=== PATIENT | male | born 1950 | race Caucasian/White ===

== ENCOUNTER 2017-11-26 13:14 | Inpatient (IN) | payer MEDICARE ==
[~2017-11-26] VITALS: Ht 188 cm; Wt 93.8 kg
[~2017-11-26 13:14] MED LIST: ALBU0.084 NEB; ALBU18 IN; AMLO2.5T6; ASPI81TA27 PO; BUDE160A3 INH; BUPR150T4; CARV6.2551 PO; DOCU250C3 PO; FURO40TA4 PO; GLYB1.25; LIS10T PO; METO2.5T11 PO; MULTTAB61 PO; POTA99TA13; QUET25TA46 PO; SERDISK IN; TIOTCAP INH
[2017-11-26] MEDS ORDERED: SODIUM CHLORIDE 0.9% 1,000 ML IV ONE ×2 (14:15→14:27)
[2017-11-26 14:30] VITALS: BP 103/77
[2017-11-26 15:40] LABS: Basophils # (auto) 0.1 uL; Basophils % (auto) 0.3 % (0.0-2.0); Eosinophils # (auto) 0 uL; Hematocrit 51.6 % (41.0-53.0); Hemoglobin 16.4 g/dL (13.5-17.5); Lymphocytes # (auto) 0.3 uL; Lymphocytes % (auto) 1.6 % (10.0-50.0); Mean Corpuscular Hemoglobin 27.9 pg (28.0-32.0); Mean Corpuscular Hgb Conc. 31.8 g/dL (32.0-36.0); Mean Corpuscular Volume 87.5 fL (80.0-100.0); Monocytes # (auto) 0.8 uL; Monocytes % (auto) 4.6 % (0.0-12.0); Neutrophils # (auto) 15.9 uL; Neutrophils % (auto) 93.5 % (37.0-80.0); Nucleated Red Blood Cells % 0.1 %; Platelet Count (auto) 113 10^3/uL (140-450)
[2017-11-26] MEDS ORDERED: VANCOMYCIN 1GM/250ML 250 ML IV ONE ×2 (15:45→20:45)
[2017-11-26 15:48] LABS: Urine Bacteria NONE SEEN /hpf (None Seen); Urine Blood TRACE /uL (Negative); Urine Hyaline Cast FEW /lpf (0 - 2); Urine Specific Gravity 1.021 (1.001-1.035); Urine WBC 56 /hpf (0 - 3); Urine WBC Clumps PRESENT /hpf (None Seen)
[2017-11-26] MEDS ORDERED: cefTRIAXone 1GM/10ml IVPUSH 10 ML IV ONE (16:06)
[2017-11-26 16:09] LABS: Red Cell Distribution Width 21.2 % (11.8-14.3)
[2017-11-26 16:13] LABS: Partial Thromboplastin Time 36.5 sec (23.78-33.04); Prothrombin Time 60.2 sec (9.27-12.13)
[2017-11-26 16:22] LABS: INR 6.24 (0.9-1.15)
[2017-11-26 16:29] LABS: Lactic Acid w/Reflex 3.7 mmol/L (0.4-2.0)
[2017-11-26] MEDS ORDERED: phytonadione 10 MG in SODIUM CHL 0.9% 50 ML IV ONE (16:30)
[2017-11-26] MEDS ORDERED: MIDAZOLAM HCL 5 MG/ML-1ML VIAL ONE (17:03)
[2017-11-26] MEDS ORDERED: MIDAZOLAM DRIP 50 mg/50mL 50 ML IV ONE (17:04)
[2017-11-26] MEDS: MIDAZOLAM DRIP 50 mg/50mL 50 ML IV SCH (17:13)
[2017-11-26 17:18] VITALS: BP 91/63
[2017-11-26] MEDS ORDERED: DILTIAZEM HCL 25 MG/5 ML VIAL IV ONE (17:30)
[2017-11-26] MEDS ORDERED: MIDAZOLAM HCL 5 MG/ML-1ML VIAL IV ONE (17:30)
[2017-11-26] MEDS ORDERED: DILTIAZEM HCL 50 MG/10 ML VIAL IV ONE (17:53)
[2017-11-26 18:32] LABS: Potassium 6.9 mmol/L (3.5-5.1)
[2017-11-26 18:33] LABS: BUN/Creatinine Ratio 22.2; Bilirubin, Total 5.4 mg/dL (0.2-1.0); Calcium 8.2 mg/dL (8.5-10.1)
[2017-11-26 18:34] LABS: Albumin 2.8 g/dL (3.4-5.0)
[2017-11-26] MEDS ORDERED: CALCIUM GLUC 4.65meq/50ml D5AE 50 ML IV ONE ×2 (18:45→22:15)
[2017-11-26] MEDS ORDERED: FUROSEMIDE 40 MG/4 ML VIAL IV ONE (18:45)
[2017-11-26] MEDS ORDERED: SODIUM BICARBONATE 8.4 % INJ 50ML VIAL IV ONE ×2 (18:45→22:15)
[2017-11-26] MEDS ORDERED: NOREPINEPHRINE 8 MG/250ML KIT 250 ML IV ONE (18:54)
[2017-11-26 18:55] VITALS: BP 91/68
[2017-11-26] MEDS: NOREPINEPHRINE 8 MG/250ML KIT 250 ML IV SCH (19:09)
[2017-11-26] MEDS ORDERED: SODIUM CHLORIDE 0.9% 1,000 ML IV SCH (19:11)
[2017-11-26] MEDS ORDERED: ACETAMINOPHEN 325 MG TAB PO PRN (19:15)
[2017-11-26] MEDS ORDERED: ONDANSETRON HCL 4 MG/2 ML VIAL IV PRN (19:15)
[2017-11-26] MEDS ORDERED: NITROGLYCERIN 0.4 MG SL TAB SL PRN (19:15)
[2017-11-26] MEDS ORDERED: DEXTROSE (50%) 50ML SYRG IV PRN (19:15)
[2017-11-26] MEDS ORDERED: VANCOMYCIN PER PHARMACY 0 MG IV SCH (19:15)
[2017-11-26] MEDS ORDERED: MORPHINE SULF INJ 2 MG/ML SYRINGE 1ML IV PRN (19:15)
[2017-11-26 19:56] VITALS: BP 91/68
[2017-11-26] MEDS: fentaNYL Drip 2500mCg/250mlNS 250 ML IV SCH (20:14)
[2017-11-26 20:30] VITALS: BP 94/61
[2017-11-26] MEDS ORDERED: BUMETANIDE (0.25 MG/ML) INJ 10ML IV ONE (20:45)
[2017-11-26] MEDS ORDERED: BUMETANIDE (0.25MG/ML) 4 ML VIAL IV ONE (21:00)
[2017-11-26 21:49] LABS: Potassium 6.4 mmol/L (3.5-5.1)
[2017-11-26 22:13] VITALS: BP 80/55
[2017-11-26] MEDS ORDERED: SODIUM POLYSTYRENE SULF 15GM/60ML SUSP PO ONE (22:15)
[2017-11-26] MEDS ORDERED: ACETAMINOPHEN 650 MG RECT SUPP PR ONE (22:15)
[2017-11-26] MEDS ORDERED: DEXTROSE (50%) 50ML SYRG IV ONE (22:15)
[2017-11-26] MEDS ORDERED: InsuLIN REG 1unit/0.01ml Soln (100units/ml) IV ONE (22:15)
[2017-11-26] MEDS: VASOPRESSIN 50 UNITS in D5W 5% 247.5 ML IV SCH (22:26)
[2017-11-26] MEDS ORDERED: LEVOFLOXACIN 250MG 50 ML IV SCH (23:00)
[2017-11-26] MEDS: SODIUM CHLORIDE 0.9% 1,000 ML IV SCH (23:07)
[2017-11-26] MEDS ORDERED: SODIUM POLYSTYRENE SULF 15GM/60ML SUSP NG ONE (23:15)
[2017-11-26] MEDS: ACCU-CHEK COMFORT CURVE STRIP VI SCH (23:41)
[2017-11-26] MEDS: InsuLIN REG 1unit/0.01ml Soln (100units/ml) SC SCH (23:41)
[2017-11-27] VITALS (72 sets, daily range): BP systolic 90–146; BP diastolic 39–93
[2017-11-27 00:30] LABS: Creatinine, Urine 227 mg/dL (30.0-125.0); Sodium Urine 6 mmol/L (40-220)
[2017-11-27 01:24] LABS: Hematocrit 47.8 % (41.0-53.0); Hemoglobin 15.2 g/dL (13.5-17.5); Mean Corpuscular Hemoglobin 27.1 pg (28.0-32.0); Mean Corpuscular Hgb Conc. 31.7 g/dL (32.0-36.0); Mean Corpuscular Volume 85.6 fL (80.0-100.0); Platelet Count (auto) 99 10^3/uL (140-450); Red Blood Cells 5.59 10^6/uL (4.5-5.90); Red Cell Distribution Width 19.9 % (11.8-14.3); White Blood Cell 17.2 10^3/uL (4.4-10.8)
[2017-11-27 01:36] LABS: Basophils % (manual) 0 (0.0-2.0); Blast Cells 0; Eosinophils % (manual) 0 (0-7); Metamyelocytes % 0; Myelocytes % 0; Promyelocytes % 0; Reactive Lymphocytes 0
[2017-11-27 01:45] LABS: Albumin 2.1 g/dL (3.4-5.0); Calcium 7.2 mg/dL (8.5-10.1); Potassium 5.5 mmol/L (3.5-5.1)
[2017-11-27 01:50] LABS: BUN/Creatinine Ratio 24.3; Bilirubin, Total 4.2 mg/dL (0.2-1.0); Total Protein 5.4 g/dL (6.4-8.2)
[2017-11-27] MEDS ORDERED: D5W/SOD CHLO 0.9% 1,000 ML IV ONE (02:30)
[2017-11-27 04:20] LABS: Band Neutrophils % (manual) 2; Lymphocytes % (manual) 3 (10.0-50.0); Monocytes % (manual) 5 (0-12)
[2017-11-27] MEDS: ACCU-CHEK COMFORT CURVE STRIP VI SCH ×4 (05:48→23:41)
[2017-11-27] MEDS: InsuLIN REG 1unit/0.01ml Soln (100units/ml) SC SCH ×4 (05:48→23:42)
[2017-11-27] MEDS ORDERED: FUROSEMIDE 20 MG/2 ML VIAL IV SCH (06:00)
[2017-11-27 07:15] LABS: Hemoglobin 15.3 g/dL (13.5-17.5); Mean Corpuscular Hemoglobin 27.2 pg (28.0-32.0); Mean Corpuscular Hgb Conc. 31.3 g/dL (32.0-36.0); Mean Corpuscular Volume 86.8 fL (80.0-100.0); Platelet Count (auto) 104 10^3/uL (140-450); Red Blood Cells 5.64 10^6/uL (4.5-5.90); White Blood Cell 22.7 10^3/uL (4.4-10.8)
[2017-11-27 07:35] LABS: Albumin 2.3 g/dL (3.4-5.0); BUN/Creatinine Ratio 23.1; Bilirubin, Total 5.2 mg/dL (0.2-1.0); Calcium 7.5 mg/dL (8.5-10.1); Total Protein 5.8 g/dL (6.4-8.2)
[2017-11-27 07:38] LABS: Potassium 5.8 mmol/L (3.5-5.1)
[2017-11-27 07:53] LABS: Basophils % (manual) 0 (0.0-2.0); Blast Cells 0; Eosinophils % (manual) 0 (0-7); Metamyelocytes % 0; Myelocytes % 0; Promyelocytes % 0; Reactive Lymphocytes 0; Red Cell Distribution Width 20.9 % (11.8-14.3)
[2017-11-27 08:31] LABS: Band Neutrophils % (manual) 14; Lymphocytes % (manual) 1 (10.0-50.0); Monocytes % (manual) 4 (0-12)
[2017-11-27] MEDS: MIDAZOLAM DRIP 50 mg/50mL 50 ML IV SCH ×3 (09:51→21:04)
[2017-11-27] MEDS: NOREPINEPHRINE 8 MG/250ML KIT 250 ML IV SCH ×3 (09:52→21:04)
[2017-11-27] MEDS ORDERED: LEVOFLOXACIN 500MG 100 ML IV ONE (10:15)
[2017-11-27] MEDS: PANTOPRAZOLE 40 MG/10 ML VIAL IV SCH (10:27)
[2017-11-27] MEDS: SODIUM CHLORIDE 0.9% 1,000 ML IV SCH (10:35)
[2017-11-27] MEDS ORDERED: VANCOMYCIN 1GM/250ML 250 ML IV SCH (12:00)
[2017-11-27] MEDS ORDERED: InsuLIN REG 1unit/0.01ml Soln (100units/ml) IV ONE (14:45)
[2017-11-27] MEDS ORDERED: DEXTROSE (50%) 50ML SYRG IV ONE (14:45)
[2017-11-27] MEDS ORDERED: MEROPENEM 500mg/10ml IVPUSH 10 ML IV ONE ×2 (15:00→15:45)
[2017-11-27] MEDS: LINEZOLID 600MG/300ML 300 ML IV SCH (15:10)
[2017-11-27] MEDS ORDERED: PHYTONADIONE (VIT K)10 MG/ML 1ML VIAL SUBCUT ONE (15:15)
[2017-11-27] MEDS: ALBUMIN 25% 100 ML IV SCH (15:24)
[2017-11-27] MEDS ORDERED: ALBUMIN 25% 100 ML IV SCH (16:00)
[2017-11-27] MEDS: BUMETANIDE (0.25 MG/ML) INJ 10ML IV SCH (16:15)
[2017-11-27] MEDS: fentaNYL Drip 2500mCg/250mlNS 250 ML IV SCH (17:08)
[2017-11-27] MEDS: SODIUM POLYSTYRENE SULF 15GM/60ML SUSP NG SCH ×2 (18:15→22:21)
[2017-11-27] MEDS: VASOPRESSIN 50 UNITS in D5W 5% 247.5 ML IV SCH (21:00)
[2017-11-27] MEDS: MEROPENEM 1gm/20ml IVPUSH 20 ML IV SCH (22:20)
[2017-11-28] VITALS (99 sets, daily range): BP systolic 86–126; BP diastolic 42–79
[2017-11-28] MEDS: MIDAZOLAM DRIP 50 mg/50mL 50 ML IV SCH ×6 (00:36→21:11)
[2017-11-28] MEDS: ALBUMIN 25% 100 ML IV SCH ×2 (03:27→15:23)
[2017-11-28 03:54] LABS: Mean Corpuscular Hemoglobin 26.9 pg (28.0-32.0)
[2017-11-28 03:57] LABS: Hematocrit 46.5 % (41.0-53.0); Hemoglobin 14.8 g/dL (13.5-17.5); Mean Corpuscular Hgb Conc. 31.8 g/dL (32.0-36.0); Mean Corpuscular Volume 84.7 fL (80.0-100.0); Platelet Count (auto) 82 10^3/uL (140-450); Red Blood Cells 5.49 10^6/uL (4.5-5.90); White Blood Cell 17.7 10^3/uL (4.4-10.8)
[2017-11-28 04:00] LABS: Red Cell Distribution Width 20.3 % (11.8-14.3)
[2017-11-28 04:02] LABS: Basophils % (manual) 0 (0.0-2.0); Blast Cells 0; Eosinophils % (manual) 0 (0-7); Metamyelocytes % 0; Myelocytes % 0; Promyelocytes % 0; Reactive Lymphocytes 0
[2017-11-28 04:05] LABS: INR 1.86 (0.9-1.15); Partial Thromboplastin Time 41.2 sec (23.78-33.04); Prothrombin Time 19.2 sec (9.27-12.13)
[2017-11-28] MEDS: LINEZOLID 600MG/300ML 300 ML IV SCH ×2 (04:07→16:00)
[2017-11-28] MEDS: BUMETANIDE (0.25 MG/ML) INJ 10ML IV SCH ×2 (04:07→15:24)
[2017-11-28 04:14] LABS: Albumin 2.2 g/dL (3.4-5.0); BUN/Creatinine Ratio 25.4; Bilirubin, Total 5.7 mg/dL (0.2-1.0); Calcium 7.5 mg/dL (8.5-10.1); Potassium 4.9 mmol/L (3.5-5.1); Total Protein 5.4 g/dL (6.4-8.2)
[2017-11-28 04:40] LABS: Band Neutrophils % (manual) 2; Lymphocytes % (manual) 2 (10.0-50.0); Monocytes % (manual) 4 (0-12)
[2017-11-28] MEDS: ACCU-CHEK COMFORT CURVE STRIP VI SCH ×3 (05:45→18:04)
[2017-11-28] MEDS: InsuLIN REG 1unit/0.01ml Soln (100units/ml) SC SCH ×3 (05:45→18:04)
[2017-11-28] MEDS: VASOPRESSIN 50 UNITS in D5W 5% 247.5 ML IV SCH (08:42)
[2017-11-28] MEDS: NOREPINEPHRINE 8 MG/250ML KIT 250 ML IV SCH (08:42)
[2017-11-28] MEDS ORDERED: LEVOFLOXACIN 750MG 150 ML IV SCH (10:00)
[2017-11-28] MEDS: PANTOPRAZOLE 40 MG/10 ML VIAL IV SCH (10:10)
[2017-11-28] MEDS: MEROPENEM 1gm/20ml IVPUSH 20 ML IV SCH ×2 (10:10→21:38)
[2017-11-28] MEDS ORDERED: LIDOCAINE 1% (LOCAL ANESTH.) PF 5ml SDV ONE (14:04)
[2017-11-28] MEDS: fentaNYL Drip 2500mCg/250mlNS 250 ML IV SCH (20:14)
[2017-11-29] VITALS (105 sets, daily range): BP systolic 88–132; BP diastolic 41–85
[2017-11-29] MEDS: ACCU-CHEK COMFORT CURVE STRIP VI SCH ×4 (00:26→18:00)
[2017-11-29] MEDS: InsuLIN REG 1unit/0.01ml Soln (100units/ml) SC SCH ×4 (00:26→18:00)
[2017-11-29] MEDS: ALBUMIN 25% 100 ML IV SCH (03:07)
[2017-11-29] MEDS: BUMETANIDE (0.25 MG/ML) INJ 10ML IV SCH (03:53)
[2017-11-29] MEDS: LINEZOLID 600MG/300ML 300 ML IV SCH (03:53)
[2017-11-29 04:20] LABS: Hematocrit 47.4 % (41.0-53.0); Mean Corpuscular Hemoglobin 26.9 pg (28.0-32.0); Mean Corpuscular Hgb Conc. 31.6 g/dL (32.0-36.0); Mean Corpuscular Volume 84.8 fL (80.0-100.0); Platelet Count (auto) 60 10^3/uL (140-450); Red Blood Cells 5.59 10^6/uL (4.5-5.90); White Blood Cell 15.3 10^3/uL (4.4-10.8)
[2017-11-29 04:22] LABS: Red Cell Distribution Width 20.8 % (11.8-14.3)
[2017-11-29 04:24] LABS: Basophils % (manual) 0 (0.0-2.0); Blast Cells 0; Eosinophils % (manual) 0 (0-7); Metamyelocytes % 0; Myelocytes % 0; Promyelocytes % 0; Reactive Lymphocytes 0
[2017-11-29 04:31] LABS: INR 1.53 (0.9-1.15); Partial Thromboplastin Time 40.8 sec (23.78-33.04)
[2017-11-29 04:46] LABS: Albumin 2.6 g/dL (3.4-5.0); BUN/Creatinine Ratio 27.8; Bilirubin, Total 4.7 mg/dL (0.2-1.0); Calcium 7.6 mg/dL (8.5-10.1); Potassium 4.4 mmol/L (3.5-5.1); Total Protein 5.7 g/dL (6.4-8.2)
[2017-11-29] MEDS: NOREPINEPHRINE 8 MG/250ML KIT 250 ML IV SCH (06:06)
[2017-11-29 06:33] LABS: Band Neutrophils % (manual) 18
[2017-11-29 06:34] LABS: Lymphocytes % (manual) 3 (10.0-50.0); Monocytes % (manual) 3 (0-12)
[2017-11-29] MEDS: PANTOPRAZOLE 40 MG/10 ML VIAL IV SCH (10:37)
[2017-11-29] MEDS: MEROPENEM 1gm/20ml IVPUSH 20 ML IV SCH (10:38)
[2017-11-29] MEDS: fentaNYL Drip 2500mCg/250mlNS 250 ML IV SCH (20:14)
[2017-11-29] MEDS: VASOPRESSIN 50 UNITS in D5W 5% 247.5 ML IV SCH (21:00)
[2017-11-29] MEDS: MEROPENEM 1GM IVPB 100 ML IV SCH (21:33)
[2017-11-29 22:59] LABS: Albumin 2.4 g/dL (3.4-5.0); BUN/Creatinine Ratio 28.5; Bilirubin, Total 5.1 mg/dL (0.2-1.0); Calcium 7.9 mg/dL (8.5-10.1); Magnesium 2.4 mg/dL (1.6-2.6); Phosphorus 3.4 mg/dL (2.5-4.90); Potassium 3.7 mmol/L (3.5-5.1); Total Protein 5.1 g/dL (6.4-8.2)
[2017-11-29] MEDS: MIDAZOLAM DRIP 50 mg/50mL 50 ML IV SCH (23:50)
[2017-11-29] MEDS ORDERED: AMIODARONE HCL 900 MG IV ONE (23:51)
[2017-11-29] MEDS ORDERED: AMIODARONE HCL 900 MG in DEXTROSE 500 ML IV SCH (23:51)
[2017-11-30] VITALS (107 sets, daily range): BP systolic 84–166; BP diastolic 39–80
[2017-11-30 04:23] LABS: Basophils # (auto) 0 uL; Eosinophils # (auto) 0 uL; Eosinophils % (auto) 0.2 % (0.0-7.0); Mean Corpuscular Hemoglobin 26.6 pg (28.0-32.0); Neutrophils % (auto) 88.9 % (37.0-80.0)
[2017-11-30 04:24] LABS: Basophils % (auto) 0.3 % (0.0-2.0); Hematocrit 48.3 % (41.0-53.0); Hemoglobin 15.4 g/dL (13.5-17.5); Lymphocytes # (auto) 0.5 uL; Lymphocytes % (auto) 3.6 % (10.0-50.0); Mean Corpuscular Hgb Conc. 31.8 g/dL (32.0-36.0); Mean Corpuscular Volume 83.6 fL (80.0-100.0); Monocytes # (auto) 0.9 uL; Platelet Count (auto) 43 10^3/uL (140-450); Red Blood Cells 5.78 10^6/uL (4.5-5.90); White Blood Cell 13.5 10^3/uL (4.4-10.8)
[2017-11-30 04:29] LABS: Red Cell Distribution Width 20.5 % (11.8-14.3)
[2017-11-30 04:43] LABS: Albumin 2.3 g/dL (3.4-5.0); BUN/Creatinine Ratio 29.1; Calcium 7.6 mg/dL (8.5-10.1); Potassium 3.7 mmol/L (3.5-5.1)
[2017-11-30 04:45] LABS: Bilirubin, Total 5.3 mg/dL (0.2-1.0); Total Protein 5.2 g/dL (6.4-8.2)
[2017-11-30] MEDS: InsuLIN REG 1unit/0.01ml Soln (100units/ml) SC SCH ×4 (06:00→18:12)
[2017-11-30] MEDS: AMIODARONE HCL 900 MG in DEXTROSE 500 ML IV SCH (06:09)
[2017-11-30] MEDS: MIDAZOLAM DRIP 50 mg/50mL 50 ML IV SCH ×3 (06:09→21:54)
[2017-11-30] MEDS: ACCU-CHEK COMFORT CURVE STRIP VI SCH ×4 (06:09→18:11)
[2017-11-30] MEDS ORDERED: VANCOMYCIN PER PHARMACY 0 MG IV SCH (09:45)
[2017-11-30] MEDS: MEROPENEM 1GM IVPB 100 ML IV SCH ×2 (10:01→21:55)
[2017-11-30] MEDS: PANTOPRAZOLE 40 MG/10 ML VIAL IV SCH (10:01)
[2017-11-30] MEDS ORDERED: D5W 5% 1,000 ML IV ONE (10:15)
[2017-11-30] MEDS ORDERED: VANCOMYCIN 1,500 MG in D5W 5% 250 ML IV ONE (11:00)
[2017-11-30] MEDS: VASOPRESSIN 50 UNITS in D5W 5% 247.5 ML IV SCH (16:01)
[2017-11-30] MEDS: NOREPINEPHRINE 8 MG/250ML KIT 250 ML IV SCH (18:27)
[2017-11-30] MEDS: fentaNYL Drip 2500mCg/250mlNS 250 ML IV SCH (20:14)
[2017-12-01] VITALS (106 sets, daily range): BP systolic 89–136; BP diastolic 37–85
[2017-12-01] MEDS: InsuLIN REG 1unit/0.01ml Soln (100units/ml) SC SCH ×4 (00:37→18:00)
[2017-12-01] MEDS: AMIODARONE HCL 900 MG in DEXTROSE 500 ML IV SCH (00:38)
[2017-12-01] MEDS: NOREPINEPHRINE 8 MG/250ML KIT 250 ML IV SCH (00:38)
[2017-12-01 04:32] LABS: Basophils # (auto) 0 uL; Basophils % (auto) 0.1 % (0.0-2.0); Eosinophils # (auto) 0.1 uL; Eosinophils % (auto) 0.5 % (0.0-7.0); Hemoglobin 15.9 g/dL (13.5-17.5); Lymphocytes # (auto) 0.5 uL; Lymphocytes % (auto) 3.8 % (10.0-50.0); Mean Corpuscular Hemoglobin 26.9 pg (28.0-32.0); Monocytes # (auto) 1.1 uL; Monocytes % (auto) 8.1 % (0.0-12.0); Neutrophils % (auto) 87.5 % (37.0-80.0); Nucleated Red Blood Cells % 0.1 %
[2017-12-01 04:34] LABS: Hematocrit 49.3 % (41.0-53.0); Mean Corpuscular Hgb Conc. 32.2 g/dL (32.0-36.0); Mean Corpuscular Volume 83.6 fL (80.0-100.0); Neutrophils # (auto) 11.5 uL; Platelet Count (auto) 45 10^3/uL (140-450); White Blood Cell 13.2 10^3/uL (4.4-10.8)
[2017-12-01 04:36] LABS: Red Cell Distribution Width 21.1 % (11.8-14.3)
[2017-12-01 04:45] LABS: Albumin 2.2 g/dL (3.4-5.0); BUN/Creatinine Ratio 31.2; Bilirubin, Total 6.1 mg/dL (0.2-1.0); Calcium 7.8 mg/dL (8.5-10.1); Potassium 3.5 mmol/L (3.5-5.1)
[2017-12-01] MEDS: MIDAZOLAM DRIP 50 mg/50mL 50 ML IV SCH ×4 (05:45→21:14)
[2017-12-01] MEDS: ACCU-CHEK COMFORT CURVE STRIP VI SCH ×4 (06:00→18:29)
[2017-12-01] MEDS ORDERED: POTASSIUM EFFERVESENT TAB 25 MEQ GT ONE (08:50)
[2017-12-01] MEDS: PANTOPRAZOLE 40 MG/10 ML VIAL IV SCH (10:00)
[2017-12-01] MEDS: MEROPENEM 1GM IVPB 100 ML IV SCH ×2 (10:00→22:22)
[2017-12-01] MEDS ORDERED: Jevity 1.2 Cal/Fiber 1 Liter GT SCH (13:15)
[2017-12-01] MEDS: fentaNYL Drip 2500mCg/250mlNS 250 ML IV SCH (20:41)
[2017-12-01] MEDS: VASOPRESSIN 50 UNITS in D5W 5% 247.5 ML IV SCH (21:00)
[2017-12-01 22:10] LABS: Calcium 8.3 mg/dL (8.5-10.1); Magnesium 2.1 mg/dL (1.6-2.6); Potassium 4.2 mmol/L (3.5-5.1)
[2017-12-02] VITALS (87 sets, daily range): BP systolic 93–129; BP diastolic 46–80
[2017-12-02] MEDS: ACCU-CHEK COMFORT CURVE STRIP VI SCH ×4 (01:40→17:49)
[2017-12-02 04:10] LABS: Basophils # (auto) 0 uL; Eosinophils # (auto) 0.1 uL; Hemoglobin 15.6 g/dL (13.5-17.5); Lymphocytes # (auto) 0.6 uL; Mean Corpuscular Hgb Conc. 32.2 g/dL (32.0-36.0); Monocytes # (auto) 1.1 uL; Nucleated Red Blood Cells % 0.1 %; White Blood Cell 11.2 10^3/uL (4.4-10.8)
[2017-12-02 04:13] LABS: Basophils % (auto) 0.3 % (0.0-2.0); Eosinophils % (auto) 0.6 % (0.0-7.0); Hematocrit 48.5 % (41.0-53.0); Lymphocytes % (auto) 5.1 % (10.0-50.0); Mean Corpuscular Hemoglobin 27.3 pg (28.0-32.0); Mean Corpuscular Volume 84.7 fL (80.0-100.0); Monocytes % (auto) 9.4 % (0.0-12.0); Neutrophils # (auto) 9.5 uL; Neutrophils % (auto) 84.6 % (37.0-80.0); Red Blood Cells 5.73 10^6/uL (4.5-5.90)
[2017-12-02 04:14] LABS: Platelet Count (auto) 56 10^3/uL (140-450); Red Cell Distribution Width 21.6 % (11.8-14.3)
[2017-12-02 04:28] LABS: Potassium 4.3 mmol/L (3.5-5.1)
[2017-12-02 04:35] LABS: Albumin 1.9 g/dL (3.4-5.0); BUN/Creatinine Ratio 33.8
[2017-12-02 04:37] LABS: Total Protein 5.1 g/dL (6.4-8.2)
[2017-12-02] MEDS: AMIODARONE HCL 900 MG in DEXTROSE 500 ML IV SCH ×2 (05:51→21:38)
[2017-12-02] MEDS: InsuLIN REG 1unit/0.01ml Soln (100units/ml) SC SCH ×4 (06:00→17:49)
[2017-12-02] MEDS: MIDAZOLAM DRIP 50 mg/50mL 50 ML IV SCH ×2 (06:36→16:14)
[2017-12-02] MEDS: MEROPENEM 1GM IVPB 100 ML IV SCH ×2 (10:08→21:38)
[2017-12-02] MEDS: PANTOPRAZOLE 40 MG/10 ML VIAL IV SCH (10:08)
[2017-12-02] MEDS: NOREPINEPHRINE 8 MG/250ML KIT 250 ML IV SCH (18:45)
[2017-12-02] MEDS: VASOPRESSIN 50 UNITS in D5W 5% 247.5 ML IV SCH (21:00)
[2017-12-03] VITALS (106 sets, daily range): BP systolic 92–133; BP diastolic 44–81
[2017-12-03] MEDS: ACCU-CHEK COMFORT CURVE STRIP VI SCH ×4 (00:17→18:11)
[2017-12-03] MEDS: InsuLIN REG 1unit/0.01ml Soln (100units/ml) SC SCH ×4 (00:17→18:00)
[2017-12-03] MEDS: MIDAZOLAM DRIP 50 mg/50mL 50 ML IV SCH ×3 (01:09→15:53)
[2017-12-03] MEDS: fentaNYL Drip 2500mCg/250mlNS 250 ML IV SCH ×2 (03:54→20:14)
[2017-12-03 04:40] LABS: Basophils # (auto) 0 uL; Basophils % (auto) 0.3 % (0.0-2.0); Eosinophils # (auto) 0.1 uL; Eosinophils % (auto) 1.2 % (0.0-7.0); Hematocrit 46.9 % (41.0-53.0); Hemoglobin 15.2 g/dL (13.5-17.5); Lymphocytes # (auto) 0.3 uL; Lymphocytes % (auto) 3.5 % (10.0-50.0); Mean Corpuscular Hemoglobin 27.3 pg (28.0-32.0); Mean Corpuscular Hgb Conc. 32.4 g/dL (32.0-36.0); Mean Corpuscular Volume 84.1 fL (80.0-100.0); Monocytes # (auto) 0.6 uL; Monocytes % (auto) 6.5 % (0.0-12.0); Neutrophils # (auto) 7.5 uL; Neutrophils % (auto) 88.5 % (37.0-80.0); Nucleated Red Blood Cells % 0.2 %; Platelet Count (auto) 70 10^3/uL (140-450); Red Blood Cells 5.58 10^6/uL (4.5-5.90); White Blood Cell 8.4 10^3/uL (4.4-10.8)
[2017-12-03 04:46] LABS: Red Cell Distribution Width 21.2 % (11.8-14.3)
[2017-12-03 04:50] LABS: Albumin 1.9 g/dL (3.4-5.0); BUN/Creatinine Ratio 36.1; Calcium 7.5 mg/dL (8.5-10.1)
[2017-12-03 04:59] LABS: Bilirubin, Total 8.4 mg/dL (0.2-1.0); Total Protein 4.9 g/dL (6.4-8.2)
[2017-12-03] MEDS: MEROPENEM 1GM IVPB 100 ML IV SCH ×2 (10:06→22:36)
[2017-12-03] MEDS: PANTOPRAZOLE 40 MG/10 ML VIAL IV SCH (10:07)
[2017-12-03] MEDS ORDERED: VANCOMYCIN 500 MG in D5W 5% 100 ML IV ONE (11:00)
[2017-12-03] MEDS ORDERED: NOREPINEPHRINE 8 MG/250ML KIT 250 ML IV SCH (12:23)
[2017-12-03] MEDS ORDERED: FREE WATER GT SCH (18:00)
[2017-12-03] MEDS: FREE WATER GT SCH (22:37)
[2017-12-04] VITALS (103 sets, daily range): BP systolic 92–135; BP diastolic 48–86
[2017-12-04] MEDS: ACCU-CHEK COMFORT CURVE STRIP VI SCH ×4 (00:15→17:45)
[2017-12-04] MEDS: FREE WATER GT SCH ×6 (03:04→22:00)
[2017-12-04 04:31] LABS: Hemoglobin 15.6 g/dL (13.5-17.5); Mean Corpuscular Hemoglobin 27.3 pg (28.0-32.0); Mean Corpuscular Hgb Conc. 32.5 g/dL (32.0-36.0); Mean Corpuscular Volume 84.1 fL (80.0-100.0); Platelet Count (auto) 80 10^3/uL (140-450); Red Blood Cells 5.71 10^6/uL (4.5-5.90); White Blood Cell 8.9 10^3/uL (4.4-10.8)
[2017-12-04 04:37] LABS: Red Cell Distribution Width 21.7 % (11.8-14.3)
[2017-12-04 04:38] LABS: Band Neutrophils % (manual) 0; Basophils % (manual) 0 (0.0-2.0); Blast Cells 0; Metamyelocytes % 0; Myelocytes % 0; Promyelocytes % 0; Reactive Lymphocytes 0
[2017-12-04 04:52] LABS: Albumin 1.9 g/dL (3.4-5.0); BUN/Creatinine Ratio 38.2; Calcium 7.7 mg/dL (8.5-10.1); Potassium 3.9 mmol/L (3.5-5.1)
[2017-12-04 04:55] LABS: Total Protein 5.5 g/dL (6.4-8.2)
[2017-12-04 05:02] LABS: Eosinophils % (manual) 2 (0-7); Lymphocytes % (manual) 3 (10.0-50.0); Monocytes % (manual) 9 (0-12)
[2017-12-04] MEDS: AMIODARONE HCL 900 MG in DEXTROSE 500 ML IV SCH (07:40)
[2017-12-04] MEDS: InsuLIN REG 1unit/0.01ml Soln (100units/ml) SC SCH ×4 (07:47→17:47)
[2017-12-04] MEDS: PANTOPRAZOLE 40 MG/10 ML VIAL IV SCH (09:30)
[2017-12-04] MEDS: MEROPENEM 1GM IVPB 100 ML IV SCH ×2 (09:30→22:00)
[2017-12-04] MEDS ORDERED: MORPHINE SULF INJ 2 MG/ML SYRINGE 1ML IV PRN (14:00)
[2017-12-05] VITALS (98 sets, daily range): BP systolic 100–153; BP diastolic 53–101
[2017-12-05] MEDS: FREE WATER GT SCH ×6 (02:00→21:54)
[2017-12-05] MEDS: ACCU-CHEK COMFORT CURVE STRIP VI SCH ×4 (06:40→18:09)
[2017-12-05] MEDS: InsuLIN REG 1unit/0.01ml Soln (100units/ml) SC SCH ×4 (06:40→18:09)
[2017-12-05 07:27] LABS: Alanine Aminotransferase 57 U/L (16-61); Anion Gap 7 (5-15); Aspartate Aminotransferase 77 U/L (15-37); BUN/Creatinine Ratio 37.9; Calcium 7.6 mg/dL (8.5-10.1); Carbon Dioxide 29 mmol/L (21-32); Chloride 111 mmol/L (98-107); GFR African American 39 mL/min; GFR Non-African American 32 mL/min; Glucose 119 mg/dL (74-106); Sodium 147 mmol/L (136-145)
[2017-12-05 07:29] LABS: Alkaline Phosphatase 183 U/L (45-117); Bilirubin, Total 7.5 mg/dL (0.2-1.0); Total Protein 6.3 g/dL (6.4-8.2)
[2017-12-05 07:38] LABS: Blood Urea Nitrogen 83 mg/dL (7-18)
[2017-12-05] MEDS: PANTOPRAZOLE 40 MG/10 ML VIAL IV SCH (09:24)
[2017-12-05] MEDS: MEROPENEM 1GM IVPB 100 ML IV SCH ×2 (09:24→21:45)
[2017-12-05] MEDS: AMIODARONE HCL 900 MG in DEXTROSE 500 ML IV SCH (09:25)
[2017-12-05] MEDS ORDERED: VANCOMYCIN 1GM/250ML 250 ML IV SCH (11:00)
[2017-12-05] MEDS ORDERED: Jevity 1.2 Cal/Fiber 1 Liter GT SCH (12:00)
[2017-12-05] MEDS: MORPHINE SULFATE 4 MG/ML SYR/VIAL IV PRN (13:05)
[2017-12-05] MEDS: LORazepam 2MG/ML-1ML VIAL IV PRN (15:58)
[2017-12-06] VITALS (103 sets, daily range): BP systolic 97–136; BP diastolic 45–93
[2017-12-06] MEDS: ACCU-CHEK COMFORT CURVE STRIP VI SCH ×4 (00:33→17:52)
[2017-12-06] MEDS: InsuLIN REG 1unit/0.01ml Soln (100units/ml) SC SCH ×4 (00:33→17:59)
[2017-12-06] MEDS: LORazepam 2MG/ML-1ML VIAL IV PRN (01:13)
[2017-12-06] MEDS: MORPHINE SULFATE 4 MG/ML SYR/VIAL IV PRN (02:30)
[2017-12-06] MEDS: FREE WATER GT SCH ×6 (02:30→22:00)
[2017-12-06 04:18] LABS: Basophils # (auto) 0 uL; Eosinophils # (auto) 0.1 uL; Hemoglobin 14.1 g/dL (13.5-17.5); Lymphocytes # (auto) 0.5 uL; Monocytes # (auto) 0.6 uL; Neutrophils # (auto) 10.5 uL
[2017-12-06 04:20] LABS: Basophils % (auto) 0.3 % (0.0-2.0); Eosinophils % (auto) 1.2 % (0.0-7.0); Hematocrit 43.9 % (41.0-53.0); Lymphocytes % (auto) 4.5 % (10.0-50.0); Mean Corpuscular Hemoglobin 26.9 pg (28.0-32.0); Mean Corpuscular Hgb Conc. 32.1 g/dL (32.0-36.0); Mean Corpuscular Volume 83.7 fL (80.0-100.0); Monocytes % (auto) 4.9 % (0.0-12.0); Neutrophils % (auto) 89.1 % (37.0-80.0); Platelet Count (auto) 108 10^3/uL (140-450); Red Blood Cells 5.24 10^6/uL (4.5-5.90); White Blood Cell 11.8 10^3/uL (4.4-10.8)
[2017-12-06 04:24] LABS: Red Cell Distribution Width 21.3 % (11.8-14.3)
[2017-12-06 04:33] LABS: BUN/Creatinine Ratio 37.9; Calcium 8.2 mg/dL (8.5-10.1); Potassium 3.8 mmol/L (3.5-5.1)
[2017-12-06] MEDS: AMIODARONE HCL 900 MG in DEXTROSE 500 ML IV SCH ×2 (05:36→11:00)
[2017-12-06] MEDS: PANTOPRAZOLE 40 MG/10 ML VIAL IV SCH (10:41)
[2017-12-06] MEDS: MEROPENEM 1GM IVPB 100 ML IV SCH ×2 (10:41→22:00)
[2017-12-06] MEDS ORDERED: AMIODARONE HCL 900 MG IV ONE (10:48)
[2017-12-06 14:08] LABS: Protein, Urine 136.3 mg/dL (0.0-11.9)
[2017-12-06 14:14] LABS: Urine Bacteria FEW /hpf (None Seen); Urine Blood 3+ /uL (Negative); Urine WBC 9 /hpf (0 - 3)
[2017-12-07] VITALS (88 sets, daily range): BP systolic 95–147; BP diastolic 53–92
[2017-12-07] MEDS: FREE WATER GT SCH ×5 (02:00→22:19)
[2017-12-07 04:02] LABS: Basophils # (auto) 0 uL; Basophils % (auto) 0.1 % (0.0-2.0); Eosinophils # (auto) 0.1 uL; Eosinophils % (auto) 0.7 % (0.0-7.0); Hematocrit 44.7 % (41.0-53.0); Hemoglobin 14.2 g/dL (13.5-17.5); Lymphocytes # (auto) 0.6 uL; Lymphocytes % (auto) 4.4 % (10.0-50.0); Mean Corpuscular Hemoglobin 26.7 pg (28.0-32.0); Mean Corpuscular Hgb Conc. 31.8 g/dL (32.0-36.0); Monocytes # (auto) 0.7 uL; Monocytes % (auto) 5.2 % (0.0-12.0); Neutrophils # (auto) 12.4 uL; Neutrophils % (auto) 89.6 % (37.0-80.0); Nucleated Red Blood Cells % 0.1 %; Platelet Count (auto) 118 10^3/uL (140-450); Red Blood Cells 5.33 10^6/uL (4.5-5.90); White Blood Cell 13.8 10^3/uL (4.4-10.8)
[2017-12-07 04:05] LABS: Red Cell Distribution Width 21.9 % (11.8-14.3)
[2017-12-07 04:18] LABS: BUN/Creatinine Ratio 36.2; Calcium 7.9 mg/dL (8.5-10.1); Potassium 3.8 mmol/L (3.5-5.1)
[2017-12-07] MEDS: ACCU-CHEK COMFORT CURVE STRIP VI SCH ×4 (06:00→18:00)
[2017-12-07] MEDS: InsuLIN REG 1unit/0.01ml Soln (100units/ml) SC SCH ×4 (06:00→18:00)
[2017-12-07] MEDS ORDERED: VANCOMYCIN 1GM/250ML 250 ML IV ONE (09:45)
[2017-12-07] MEDS ORDERED: VANCOMYCIN PER PHARMACY 0 MG IV SCH (09:45)
[2017-12-07] MEDS: PANTOPRAZOLE 40 MG/10 ML VIAL IV SCH (10:30)
[2017-12-07] MEDS: VANCOMYCIN 1,250 MG in D5W 5% 250 ML IV SCH (11:00)
[2017-12-07] MEDS: MEROPENEM 1GM IVPB 100 ML IV SCH ×2 (13:30→22:22)
[2017-12-07] MEDS ORDERED: ENOXAPARIN SOD 40 MG/0.4 ML SYRINGE SC ONE (15:00)
[2017-12-07] MEDS ORDERED: ACETAMINOPHEN 650 mg PER 20 mL UD ONE (18:02)
[2017-12-07] MEDS: MORPHINE SULFATE 4 MG/ML SYR/VIAL IV PRN (20:44)
[2017-12-08] VITALS (55 sets, daily range): BP systolic 91–137; BP diastolic 41–90
[2017-12-08] MEDS: InsuLIN REG 1unit/0.01ml Soln (100units/ml) SC SCH ×4 (00:15→18:00)
[2017-12-08] MEDS: ACCU-CHEK COMFORT CURVE STRIP VI SCH ×4 (00:15→18:26)
[2017-12-08] MEDS: FREE WATER GT SCH ×5 (02:00→18:00)
[2017-12-08] MEDS: VANCOMYCIN 1,250 MG in D5W 5% 250 ML IV SCH (05:27)
[2017-12-08] MEDS: AMIODARONE HCL 900 MG in DEXTROSE 500 ML IV SCH ×2 (05:28→15:00)
[2017-12-08 05:58] LABS: Basophils # (auto) 0 uL; Basophils % (auto) 0.3 % (0.0-2.0); Eosinophils # (auto) 0.1 uL; Eosinophils % (auto) 0.7 % (0.0-7.0); Hematocrit 44.2 % (41.0-53.0); Hemoglobin 14.2 g/dL (13.5-17.5); Lymphocytes # (auto) 0.4 uL; Lymphocytes % (auto) 2.4 % (10.0-50.0); Mean Corpuscular Hemoglobin 27.5 pg (28.0-32.0); Mean Corpuscular Hgb Conc. 32.2 g/dL (32.0-36.0); Mean Corpuscular Volume 85.4 fL (80.0-100.0); Monocytes # (auto) 0.6 uL; Monocytes % (auto) 3.9 % (0.0-12.0); Neutrophils # (auto) 14.3 uL; Neutrophils % (auto) 92.7 % (37.0-80.0); Platelet Count (auto) 117 10^3/uL (140-450); Red Blood Cells 5.18 10^6/uL (4.5-5.90); White Blood Cell 15.4 10^3/uL (4.4-10.8)
[2017-12-08 06:00] LABS: BUN/Creatinine Ratio 34.2; Calcium 7.5 mg/dL (8.5-10.1); Potassium 3.7 mmol/L (3.5-5.1)
[2017-12-08 06:17] LABS: Red Cell Distribution Width 22.1 % (11.8-14.3)
[2017-12-08] MEDS ORDERED: SOD CHL 0.45% 1,000 ML IV SCH (08:45)
[2017-12-08] MEDS: PANTOPRAZOLE 40 MG/10 ML VIAL IV SCH (10:38)
[2017-12-08] MEDS: ENOXAPARIN SOD 40 MG/0.4 ML SYRINGE SC SCH (10:38)
[2017-12-08] MEDS: MEROPENEM 1GM IVPB 100 ML IV SCH ×2 (11:08→22:30)
[2017-12-08] MEDS ORDERED: BUMETANIDE (0.25MG/ML) 4 ML VIAL IV ONE (11:30)
[2017-12-08] MEDS: LINEZOLID 600MG/300ML 300 ML IV SCH (21:45)
[2017-12-09] VITALS (59 sets, daily range): BP systolic 109–153; BP diastolic 47–103
[2017-12-09] MEDS: LORazepam 2MG/ML-1ML VIAL IV PRN (01:27)
[2017-12-09 03:55] LABS: Basophils # (auto) 0.1 uL; Basophils % (auto) 0.4 % (0.0-2.0); Eosinophils # (auto) 0.1 uL; Eosinophils % (auto) 0.7 % (0.0-7.0); Hematocrit 43.8 % (41.0-53.0); Hemoglobin 13.9 g/dL (13.5-17.5); Lymphocytes # (auto) 0.6 uL; Mean Corpuscular Hemoglobin 27.1 pg (28.0-32.0); Mean Corpuscular Hgb Conc. 31.7 g/dL (32.0-36.0); Mean Corpuscular Volume 85.4 fL (80.0-100.0); Monocytes # (auto) 0.7 uL; Monocytes % (auto) 5.1 % (0.0-12.0); Neutrophils # (auto) 12.7 uL; Neutrophils % (auto) 89.8 % (37.0-80.0); Nucleated Red Blood Cells % 0.1 %; Platelet Count (auto) 142 10^3/uL (140-450); Red Blood Cells 5.13 10^6/uL (4.5-5.90); White Blood Cell 14.1 10^3/uL (4.4-10.8)
[2017-12-09 03:57] LABS: Red Cell Distribution Width 23.1 % (11.8-14.3)
[2017-12-09 04:11] LABS: Albumin 1.8 g/dL (3.4-5.0); BUN/Creatinine Ratio 29.4; Calcium 7.6 mg/dL (8.5-10.1); Potassium 3.9 mmol/L (3.5-5.1)
[2017-12-09 04:14] LABS: Bilirubin, Total 7.1 mg/dL (0.2-1.0); Total Protein 6.3 g/dL (6.4-8.2)
[2017-12-09] MEDS: InsuLIN REG 1unit/0.01ml Soln (100units/ml) SC SCH ×4 (06:00→17:28)
[2017-12-09] MEDS: MEROPENEM 1GM IVPB 100 ML IV SCH ×3 (06:00→21:23)
[2017-12-09] MEDS: FREE WATER GT SCH ×2 (06:00)
[2017-12-09] MEDS: ACCU-CHEK COMFORT CURVE STRIP VI SCH ×4 (06:00→17:28)
[2017-12-09 09:48] LABS: INR 1.19 (0.9-1.15); Prothrombin Time 12.6 sec (9.27-12.13)
[2017-12-09] MEDS: LINEZOLID 600MG/300ML 300 ML IV SCH ×2 (10:34→21:23)
[2017-12-09] MEDS: ENOXAPARIN SOD 40 MG/0.4 ML SYRINGE SC SCH (10:34)
[2017-12-09] MEDS: PANTOPRAZOLE 40 MG/10 ML VIAL IV SCH (10:34)
[2017-12-09] MEDS ORDERED: BUMETANIDE (0.25MG/ML) 4 ML VIAL IV ONE (13:45)
[2017-12-09] MEDS ORDERED: ASPirin 81 mg TAB PO ONE (13:45)
[2017-12-09] MEDS ORDERED: AMIODARONE HCL 200 MG TAB PO ONE (16:00)
[2017-12-09] MEDS: Glucerna Carbsteady SHAKE Vanilla 8oz PO SCH (18:27)
[2017-12-09] MEDS: BUDESONIDE (INHALATION) 0.5 MG/2 ML NEB NEB SCH (19:17)
[2017-12-09] MEDS: IPRATROPIUM BROM 0.5 MG/2.5ML INH SOL NEB SCH (19:17)
[2017-12-09] MEDS: AMIODARONE HCL 200 MG TAB PO SCH (21:24)
[2017-12-10] VITALS (7 sets, daily range): BP systolic 98–134; BP diastolic 33–66
[2017-12-10 05:34] LABS: Basophils # (auto) 0 uL; Basophils % (auto) 0.3 % (0.0-2.0); Eosinophils # (auto) 0.1 uL; Hematocrit 45.1 % (41.0-53.0); Hemoglobin 14.3 g/dL (13.5-17.5); Lymphocytes # (auto) 0.6 uL; Lymphocytes % (auto) 5.1 % (10.0-50.0); Mean Corpuscular Hemoglobin 27.2 pg (28.0-32.0); Mean Corpuscular Hgb Conc. 31.7 g/dL (32.0-36.0); Mean Corpuscular Volume 85.7 fL (80.0-100.0); Monocytes # (auto) 0.6 uL; Monocytes % (auto) 5.5 % (0.0-12.0); Neutrophils # (auto) 10.3 uL; Neutrophils % (auto) 88.1 % (37.0-80.0); Platelet Count (auto) 149 10^3/uL (140-450); Red Blood Cells 5.26 10^6/uL (4.5-5.90); White Blood Cell 11.7 10^3/uL (4.4-10.8)
[2017-12-10 05:39] LABS: Red Cell Distribution Width 23.4 % (11.8-14.3)
[2017-12-10 06:00] LABS: BUN/Creatinine Ratio 27.1; Calcium 7.8 mg/dL (8.5-10.1)
[2017-12-10] MEDS: InsuLIN REG 1unit/0.01ml Soln (100units/ml) SC SCH ×5 (06:00→23:29)
[2017-12-10] MEDS: ACCU-CHEK COMFORT CURVE STRIP VI SCH ×5 (06:00→23:29)
[2017-12-10] MEDS: MEROPENEM 1GM IVPB 100 ML IV SCH (06:36)
[2017-12-10] MEDS: IPRATROPIUM BROM 0.5 MG/2.5ML INH SOL NEB SCH ×4 (06:37→18:23)
[2017-12-10] MEDS: BUDESONIDE (INHALATION) 0.5 MG/2 ML NEB NEB SCH ×2 (06:37→18:23)
[2017-12-10] MEDS: Glucerna Carbsteady SHAKE Vanilla 8oz PO SCH ×3 (09:05→17:35)
[2017-12-10] MEDS: PANTOPRAZOLE 40 MG/10 ML VIAL IV SCH (09:55)
[2017-12-10] MEDS: ASPirin 81 mg TAB PO SCH (09:55)
[2017-12-10] MEDS: LINEZOLID 600MG/300ML 300 ML IV SCH ×2 (09:55→21:04)
[2017-12-10] MEDS: BUMETANIDE 1 MG TAB PO SCH (09:56)
[2017-12-10] MEDS: AMIODARONE HCL 200 MG TAB PO SCH ×2 (09:56→21:04)
[2017-12-10] MEDS: ENOXAPARIN SOD 40 MG/0.4 ML SYRINGE SC SCH (09:56)
[2017-12-10] MEDS ORDERED: MORPHINE SULF INJ 2 MG/ML SYRINGE 1ML IV PRN (11:30)
[2017-12-10] MEDS ORDERED: LEVOFLOXACIN 250MG 50 ML IV ONE (11:30)
[2017-12-10] MEDS ORDERED: MORPHINE SULFATE 4 MG/ML SYR/VIAL IV PRN (11:30)
[2017-12-11 05:00] VITALS: BP 126/86
[2017-12-11 05:48] LABS: BUN/Creatinine Ratio 23.1; Calcium 7.9 mg/dL (8.5-10.1); Potassium 3.9 mmol/L (3.5-5.1)
[2017-12-11] MEDS: InsuLIN REG 1unit/0.01ml Soln (100units/ml) SC SCH ×3 (05:55→16:51)
[2017-12-11] MEDS: ACCU-CHEK COMFORT CURVE STRIP VI SCH ×4 (05:55→23:52)
[2017-12-11] MEDS: IPRATROPIUM BROM 0.5 MG/2.5ML INH SOL NEB SCH ×4 (06:18→19:10)
[2017-12-11] MEDS: BUDESONIDE (INHALATION) 0.5 MG/2 ML NEB NEB SCH ×2 (06:18→19:10)
[2017-12-11 08:20] VITALS: BP 168/98
[2017-12-11] MEDS: Glucerna Carbsteady SHAKE Vanilla 8oz PO SCH ×3 (09:42→18:08)
[2017-12-11] MEDS: LINEZOLID 600MG/300ML 300 ML IV SCH (09:52)
[2017-12-11] MEDS: AMIODARONE HCL 200 MG TAB PO SCH ×2 (09:53→22:35)
[2017-12-11] MEDS: PANTOPRAZOLE 40 MG TAB PO SCH (09:53)
[2017-12-11] MEDS: ASPirin 81 mg TAB PO SCH (09:53)
[2017-12-11] MEDS: BUMETANIDE 1 MG TAB PO SCH (09:53)
[2017-12-11] MEDS: ENOXAPARIN SOD 40 MG/0.4 ML SYRINGE SC SCH (09:54)
[2017-12-11] MEDS ORDERED: LINEZOLID 600MG TABLET PO SCH (10:00)
[2017-12-11] MEDS ORDERED: LEVOFLOXACIN 250MG 50 ML IV SCH (10:00)
[2017-12-11] MEDS: LISINOPRIL 10 MG TAB PO SCH (11:29)
[2017-12-11] MEDS: LEVOFLOXACIN 500 MG TAB PO SCH (11:45)
[2017-12-11 12:16] VITALS: BP 113/60
[2017-12-11] MEDS ORDERED: LIDOCAINE 1% (LOCAL ANESTH.) PF 5ml SDV ID ONE (15:30)
[2017-12-11 17:02] VITALS: BP 102/71
[2017-12-11] MEDS: SODIUM CHLOR 0.9% PF (SALINE LOCK) 10ML VIAL/SYR IV SCH (22:34)
[2017-12-11] MEDS: LINEZOLID 600MG TABLET PO SCH (22:35)
[2017-12-11 22:52] VITALS: BP 98/64
[2017-12-12] MEDS: IPRATROPIUM BROM 0.5 MG/2.5ML INH SOL NEB SCH ×4 (00:43→19:55)
[2017-12-12 05:16] LABS: BUN/Creatinine Ratio 22.6; Calcium 7.8 mg/dL (8.5-10.1); Potassium 4.1 mmol/L (3.5-5.1)
[2017-12-12 05:45] VITALS: BP 115/49
[2017-12-12] MEDS: BUDESONIDE (INHALATION) 0.5 MG/2 ML NEB NEB SCH ×2 (05:59→19:55)
[2017-12-12] MEDS: InsuLIN REG 1unit/0.01ml Soln (100units/ml) SC SCH ×4 (06:00→17:56)
[2017-12-12] MEDS: ACCU-CHEK COMFORT CURVE STRIP VI SCH ×3 (06:13→16:45)
[2017-12-12 08:42] VITALS: BP 92/55
[2017-12-12] MEDS: LISINOPRIL 10 MG TAB PO SCH (10:00)
[2017-12-12] MEDS: PANTOPRAZOLE 40 MG TAB PO SCH (10:40)
[2017-12-12] MEDS: LEVOFLOXACIN 500 MG TAB PO SCH (10:41)
[2017-12-12] MEDS: ASPirin 81 mg TAB PO SCH (10:42)
[2017-12-12] MEDS: LINEZOLID 600MG TABLET PO SCH ×2 (10:44→22:00)
[2017-12-12] MEDS: AMIODARONE HCL 200 MG TAB PO SCH ×2 (10:52→22:00)
[2017-12-12] MEDS: Glucerna Carbsteady SHAKE Vanilla 8oz PO SCH ×3 (11:59→17:56)
[2017-12-12] MEDS: SODIUM CHLOR 0.9% PF (SALINE LOCK) 10ML VIAL/SYR IV SCH ×2 (12:00→22:00)
[2017-12-12] MEDS: ENOXAPARIN SOD 40 MG/0.4 ML SYRINGE SC SCH (12:01)
[2017-12-12] MEDS: BUMETANIDE 1 MG TAB PO SCH (12:18)
[2017-12-12 13:07] VITALS: BP 100/50
[2017-12-12 17:02] VITALS: BP 110/80
[2017-12-12] MEDS ORDERED: CARVEDILOL 3.125 MG TAB PO SCH (22:00)
[2017-12-12 22:04] VITALS: BP 110/80
[2017-12-12 22:08] VITALS: BP 114/49
[2017-12-13 05:33] VITALS: BP 109/62
[2017-12-13] MEDS: ACCU-CHEK COMFORT CURVE STRIP VI SCH ×4 (05:47→16:56)
[2017-12-13] MEDS: InsuLIN REG 1unit/0.01ml Soln (100units/ml) SC SCH ×4 (05:47→16:57)
[2017-12-13] MEDS: BUDESONIDE (INHALATION) 0.5 MG/2 ML NEB NEB SCH ×2 (07:24→19:35)
[2017-12-13] MEDS: IPRATROPIUM BROM 0.5 MG/2.5ML INH SOL NEB SCH ×4 (07:24→19:35)
[2017-12-13 07:39] LABS: Basophils # (auto) 0 uL; Basophils % (auto) 0.4 % (0.0-2.0); Eosinophils # (auto) 0.1 uL; Eosinophils % (auto) 0.7 % (0.0-7.0); Hematocrit 39.1 % (41.0-53.0); Hemoglobin 12.6 g/dL (13.5-17.5); Lymphocytes # (auto) 0.5 uL; Mean Corpuscular Hemoglobin 27.3 pg (28.0-32.0); Mean Corpuscular Hgb Conc. 32.1 g/dL (32.0-36.0); Mean Corpuscular Volume 84.9 fL (80.0-100.0); Monocytes # (auto) 0.6 uL; Monocytes % (auto) 7.1 % (0.0-12.0); Neutrophils # (auto) 7.4 uL; Neutrophils % (auto) 85.8 % (37.0-80.0); Platelet Count (auto) 149 10^3/uL (140-450); Red Blood Cells 4.61 10^6/uL (4.5-5.90); White Blood Cell 8.6 10^3/uL (4.4-10.8)
[2017-12-13 07:40] LABS: Potassium 3.9 mmol/L (3.5-5.1)
[2017-12-13 07:48] LABS: Albumin 1.4 g/dL (3.4-5.0); BUN/Creatinine Ratio 21.6; Calcium 7.4 mg/dL (8.5-10.1)
[2017-12-13 07:50] LABS: Bilirubin, Total 5.2 mg/dL (0.2-1.0); Total Protein 5.5 g/dL (6.4-8.2)
[2017-12-13 10:13] VITALS: BP 89/55
[2017-12-13] MEDS: ENOXAPARIN SOD 40 MG/0.4 ML SYRINGE SC SCH (10:53)
[2017-12-13] MEDS: AMIODARONE HCL 200 MG TAB PO SCH ×2 (10:54→22:00)
[2017-12-13] MEDS: PANTOPRAZOLE 40 MG TAB PO SCH (10:54)
[2017-12-13] MEDS: ASPirin 81 mg TAB PO SCH (10:55)
[2017-12-13] MEDS: LEVOFLOXACIN 500 MG TAB PO SCH (10:55)
[2017-12-13] MEDS: SODIUM CHLOR 0.9% PF (SALINE LOCK) 10ML VIAL/SYR IV SCH ×2 (10:55→22:00)
[2017-12-13] MEDS: Glucerna Carbsteady SHAKE Vanilla 8oz PO SCH ×3 (11:17→16:56)
[2017-12-13] MEDS: LINEZOLID 600MG TABLET PO SCH ×2 (11:17→22:00)
[2017-12-13 13:46] VITALS: BP 90/53
[2017-12-13] MEDS: CARVEDILOL 3.125 MG TAB PO SCH (15:13)
[2017-12-13 16:47] VITALS: BP 84/63
[2017-12-13 22:00] VITALS: BP 104/58
[2017-12-14] MEDS: ACCU-CHEK COMFORT CURVE STRIP VI SCH ×5 (00:03→23:57)
[2017-12-14] MEDS: IPRATROPIUM BROM 0.5 MG/2.5ML INH SOL NEB SCH ×4 (00:50→18:14)
[2017-12-14] MEDS: CARVEDILOL 3.125 MG TAB PO SCH ×3 (01:20→22:00)
[2017-12-14 05:12] VITALS: BP 87/62
[2017-12-14] MEDS: InsuLIN REG 1unit/0.01ml Soln (100units/ml) SC SCH ×5 (06:00→23:57)
[2017-12-14] MEDS: BUDESONIDE (INHALATION) 0.5 MG/2 ML NEB NEB SCH ×2 (07:47→18:14)
[2017-12-14 09:10] VITALS: BP 92/48
[2017-12-14] MEDS: PANTOPRAZOLE 40 MG TAB PO SCH (10:18)
[2017-12-14] MEDS: ASPirin 81 mg TAB PO SCH (10:18)
[2017-12-14] MEDS: Glucerna Carbsteady SHAKE Vanilla 8oz PO SCH ×3 (10:18→18:50)
[2017-12-14] MEDS: SODIUM CHLOR 0.9% PF (SALINE LOCK) 10ML VIAL/SYR IV SCH ×2 (10:18→22:15)
[2017-12-14] MEDS: LINEZOLID 600MG TABLET PO SCH ×2 (10:20→21:44)
[2017-12-14] MEDS: ENOXAPARIN SOD 40 MG/0.4 ML SYRINGE SC SCH (10:20)
[2017-12-14] MEDS: LEVOFLOXACIN 500 MG TAB PO SCH (10:20)
[2017-12-14] MEDS: AMIODARONE HCL 200 MG TAB PO SCH ×2 (10:22→21:44)
[2017-12-14] MEDS: TORSEMIDE 20 MG TAB PO SCH (10:35)
[2017-12-14 13:00] VITALS: BP 124/55
[2017-12-14 16:18] VITALS: BP 100/54
[2017-12-14 21:40] VITALS: BP 87/46
[2017-12-14 21:55] VITALS: BP 103/76
[2017-12-15 04:43] VITALS: BP 92/51
[2017-12-15] MEDS: IPRATROPIUM BROM 0.5 MG/2.5ML INH SOL NEB SCH ×4 (05:56→18:21)
[2017-12-15] MEDS: BUDESONIDE (INHALATION) 0.5 MG/2 ML NEB NEB SCH ×2 (05:56→18:21)
[2017-12-15] MEDS: InsuLIN REG 1unit/0.01ml Soln (100units/ml) SC SCH ×3 (06:00→17:56)
[2017-12-15] MEDS: ACCU-CHEK COMFORT CURVE STRIP VI SCH ×3 (06:05→17:21)
[2017-12-15] MEDS: Glucerna Carbsteady SHAKE Vanilla 8oz PO SCH ×3 (07:52→17:21)
[2017-12-15 07:54] LABS: Albumin 1.6 g/dL (3.4-5.0); BUN/Creatinine Ratio 19.8; Bilirubin, Total 4.9 mg/dL (0.2-1.0); Calcium 7.6 mg/dL (8.5-10.1); Potassium 4.4 mmol/L (3.5-5.1)
[2017-12-15] MEDS: CARVEDILOL 3.125 MG TAB PO SCH ×2 (10:00→21:27)
[2017-12-15 10:04] VITALS: BP 108/63
[2017-12-15] MEDS: AMIODARONE HCL 200 MG TAB PO SCH ×2 (10:56→21:27)
[2017-12-15] MEDS: SODIUM CHLOR 0.9% PF (SALINE LOCK) 10ML VIAL/SYR IV SCH ×2 (10:56→21:27)
[2017-12-15] MEDS: ASPirin 81 mg TAB PO SCH (10:56)
[2017-12-15] MEDS: LEVOFLOXACIN 500 MG TAB PO SCH (10:57)
[2017-12-15] MEDS: TORSEMIDE 20 MG TAB PO SCH (10:57)
[2017-12-15] MEDS: PANTOPRAZOLE 40 MG TAB PO SCH (10:58)
[2017-12-15] MEDS: ENOXAPARIN SOD 40 MG/0.4 ML SYRINGE SC SCH (10:58)
[2017-12-15] MEDS: LINEZOLID 600MG TABLET PO SCH ×2 (10:58→21:28)
[2017-12-15 13:00] VITALS: BP 100/52
[2017-12-15 16:24] VITALS: BP 94/52
[2017-12-15 21:35] VITALS: BP 100/52
[2017-12-15 22:00] VITALS: BP_SYST 115; BP_DIAS 67; BP_DIAS 78
== END 2017-12-15 22:15 | DRG 870 ==
LOC: ER 13:14 → EDBD 13:14 → TELE 13:15 → ICU WEST 11-27 07:33 → DOU IN ICU 12-09 18:03 → CENTRAL 12-10 23:44 → TELE-CENTR 12-14 23:10
PROVIDERS: ADMIT Nurse Practitioner; ATTEND Internal Medicine
PROC: 5A1955Z Respiratory Ventilation, Greater than 96 Consecutive Hours (ICD-10-PCS; principal; 2017-11-26)
PROC: 0BH17EZ Insertion of Endotracheal Airway into Trachea, Via Natural or Artificial Opening (ICD-10-PCS; 2017-11-26)
PROC: 5A09357 Assistance with Respiratory Ventilation, Less than 24 Consecutive Hours, Continuous Positive Airway Pressure (ICD-10-PCS; 2017-11-26)
PROC: 02HV33Z Insertion of Infusion Device into Superior Vena Cava, Percutaneous Approach (ICD-10-PCS; 2017-11-27)
PROC: 30233L1 Transfusion of Nonautologous Fresh Plasma into Peripheral Vein, Percutaneous Approach (ICD-10-PCS; 2017-11-27)
PROC: 30233K1 Transfusion of Nonautologous Frozen Plasma into Peripheral Vein, Percutaneous Approach (ICD-10-PCS; 2017-11-27)
PROC: 0W9G3ZZ Drainage of Peritoneal Cavity, Percutaneous Approach (ICD-10-PCS; 2017-11-28)
PROC: BW40ZZZ Ultrasonography of Abdomen (ICD-10-PCS; 2017-11-28)
PROC: 0W9G3ZZ Drainage of Peritoneal Cavity, Percutaneous Approach (ICD-10-PCS; 2017-12-11)
PROC: BW40ZZZ Ultrasonography of Abdomen (ICD-10-PCS; 2017-12-11)
PROC: 02HV33Z Insertion of Infusion Device into Superior Vena Cava, Percutaneous Approach (ICD-10-PCS; 2017-12-11)
DX: A41.02 Sepsis due to Methicillin resistant Staphylococcus aureus (principal); R65.21 Severe sepsis with septic shock; I50.23 Acute on chronic systolic (congestive) heart failure; N17.0 Acute kidney failure with tubular necrosis; I21.4 Non-ST elevation (NSTEMI) myocardial infarction; J96.01 Acute respiratory failure with hypoxia; E43 Unspecified severe protein-calorie malnutrition; J15.212 Pneumonia due to Methicillin resistant Staphylococcus aureus; R57.0 Cardiogenic shock; N39.0 Urinary tract infection, site not specified; D68.59 Other primary thrombophilia; I48.92 Unspecified atrial flutter; J44.0 Chronic obstructive pulmonary disease with (acute) lower respiratory infection; I13.0 Hypertensive heart and chronic kidney disease with heart failure and stage 1 through stage 4 chronic kidney disease, or unspecified chronic kidney disease; E44.0 Moderate protein-calorie malnutrition; E87.0 Hyperosmolality and hypernatremia; C18.9 Malignant neoplasm of colon, unspecified; N18.4 Chronic kidney disease, stage 4 (severe); I48.1 Persistent atrial fibrillation; I47.2 Ventricular tachycardia; R18.8 Other ascites; I42.0 Dilated cardiomyopathy; E87.5 Hyperkalemia; D64.9 Anemia, unspecified; E11.22 Type 2 diabetes mellitus with diabetic chronic kidney disease; B96.20 Unspecified Escherichia coli [E. coli] as the cause of diseases classified elsewhere; D69.6 Thrombocytopenia, unspecified; Z68.26 Body mass index [BMI] 26.0-26.9, adult; F31.9 Bipolar disorder, unspecified; F17.210 Nicotine dependence, cigarettes, uncomplicated; F41.9 Anxiety disorder, unspecified; I25.5 Ischemic cardiomyopathy; I44.7 Left bundle-branch block, unspecified; I25.10 Atherosclerotic heart disease of native coronary artery without angina pectoris; I50.84 End stage heart failure; I70.0 Atherosclerosis of aorta; K72.90 Hepatic failure, unspecified without coma; Z66 Do not resuscitate; Z79.82 Long term (current) use of aspirin; Z82.49 Family history of ischemic heart disease and other diseases of the circulatory system; Z85.038 Personal history of other malignant neoplasm of large intestine; Z86.711 Personal history of pulmonary embolism; Z90.49 Acquired absence of other specified parts of digestive tract; Z88.0 Allergy status to penicillin; Z79.899 Other long term (current) drug therapy; Z79.84 Long term (current) use of oral hypoglycemic drugs
CPT/HCPCS: 31500; 36415; 36430; 36569; 36600; 70450; 71045; 74176; 76700; 76705; 76942; 80048; 80053; 80202; 81001; 82310; 82378; 82570; 82805; 82962; 83036; 83605; 83735; 83880; 84100; 84132; 84156; 84300; 84443; 84484; 85007; 85025; 85027; 85379; 85610; 85730; 86850; 86900; 86901; 87040; 87070; 87077; 87081; 87147; 87186; 87205; 93005; 93306; 94002; 94003; 94640; 94660; 96361; 96365; 96368; 96375; 96376; 96379; 99291; C9113; J0610; J0696; J1815; J1956; J2185; J2250; J3430; J7042; J7060; P9047

== ENCOUNTER 2018-03-16 17:47 | Inpatient (IN) | payer MEDICARE, MEDICAID, OTHER | END 2018-03-20 14:45 | LOC: OVERFLOW 03-17 00:34 → ER 17:47 → TELE-EAST 03-18 14:32 | PROC: 0W9G3ZZ Drainage of Peritoneal Cavity, Percutaneous Approach (ICD-10-PCS; principal; ~2018-03-16) | DX: K74.60 Unspecified cirrhosis of liver (principal); N17.0 Acute kidney failure with tubular necrosis; J18.9 Pneumonia, unspecified organism; J96.20 Acute and chronic respiratory failure, unspecified whether with hypoxia or hypercapnia; R18.8 Other ascites; I13.0 Hypertensive heart and chronic kidney disease with heart failure and stage 1 through stage 4 chronic kidney disease, or unspecified chronic kidney disease; D68.9 Coagulation defect, unspecified; L03.115 Cellulitis of right lower limb; L03.116 Cellulitis of left lower limb; J44.0 Chronic obstructive pulmonary disease with (acute) lower respiratory infection; N39.0 Urinary tract infection, site not specified; N18.4 Chronic kidney disease, stage 4 (severe); K72.90 Hepatic failure, unspecified without coma; I50.9 Heart failure, unspecified; E87.5 Hyperkalemia; I48.91 Unspecified atrial fibrillation; I25.5 Ischemic cardiomyopathy; E88.09 Other disorders of plasma-protein metabolism, not elsewhere classified; K80.20 Calculus of gallbladder without cholecystitis without obstruction ==

== ENCOUNTER 2019-08-11 16:04 | Inpatient (IN) | payer MEDICARE, MEDICAID ==
[~2019-08-11] VITALS: Ht 182.9 cm; Wt 65.0 kg
[~2019-08-11 16:04] MED LIST changes: -AMLO2.5T6; +AMLO2.5T7; +ASPI-404 PO; -ASPI81TA27 PO
[2019-08-11 16:42] LABS: Basophils # (auto) 0 10 ^3/uL (0-0.2); Basophils % (auto) 0.3 % (0.0-2.0); Eosinophils # (auto) 0 10 ^3/uL (0-0.8); Eosinophils % (auto) 0.2 % (0.0-7.0); Hematocrit 43.1 % (41.0-53.0); Hemoglobin 14.2 g/dL (13.5-17.5); Lymphocytes # (auto) 0.5 10 ^3/uL (0.4-5.4); Mean Corpuscular Hemoglobin 27.6 pg (28.0-32.0); Mean Corpuscular Hgb Conc. 32.9 g/dL (32.0-36.0); Mean Corpuscular Volume 83.9 fL (80.0-100.0); Monocytes # (auto) 0.9 10 ^3/uL (0-1.3); Neutrophils # (auto) 7.6 10 ^3/uL (1.6-8.6); Neutrophils % (auto) 84.5 % (37.0-80.0); Platelet Count (auto) 301 10^3/uL (140-450); Red Blood Cells 5.13 10^6/uL (4.5-5.90); Red Cell Distribution Width 17.6 % (11.8-14.3)
[2019-08-11] MEDS ORDERED: SODIUM CHLORIDE 0.9% 1,000 ML IV ONE (16:45)
[2019-08-11 17:01] LABS: Albumin 2.2 g/dL (3.4-5.0); Anion Gap 7 (5-15); Blood Urea Nitrogen 51 mg/dL (7-18); Calcium 8.2 mg/dL (8.5-10.1); Carbon Dioxide 29 mmol/L (21-32); Chloride 97 mmol/L (98-107); Glucose 89 mg/dL (74-106); Potassium 3.6 mmol/L (3.5-5.1); Sodium 133 mmol/L (136-145)
[2019-08-11 17:06] LABS: Magnesium 2.6 mg/dL (1.6-2.6)
[2019-08-11 17:07] LABS: Alanine Aminotransferase 21 U/L (16-61); Alkaline Phosphatase 259 U/L (45-117); Aspartate Aminotransferase 15 U/L (15-37); BUN/Creatinine Ratio 22.2; GFR African American 37 mL/min; GFR Non-African American 30 mL/min; Total Protein 7.5 g/dL (6.4-8.2)
[2019-08-11 17:27] LABS: INR 1.22 (0.9-1.15); Partial Thromboplastin Time 33.2 sec (23.64-32.05)
[2019-08-11] MEDS ORDERED: ACETAMINOPHEN 500 MG TAB PO PRN (20:15)
[2019-08-11] MEDS ORDERED: DEXTROSE (50%) 50ML SYRG IV PRN (20:15)
[2019-08-11] MEDS ORDERED: MORPHINE SULF INJ 2 MG/ML SYRINGE 1ML IV PRN (20:15)
[2019-08-11] MEDS ORDERED: NITROGLYCERIN 0.4 MG SL TAB SL PRN (20:15)
[2019-08-11] MEDS: ZINC SULFATE 220mg CAP or TAB PO SCH (20:33)
[2019-08-11] MEDS ORDERED: cefTRIAXone 1GM/50ML D5W 50 ML IV ONE (21:15)
[2019-08-11] MEDS ORDERED: ALBUTEROL SULF HFA 90MCG INH 200DOSE IN SCH (22:00)
[2019-08-11] MEDS: DOXYCYCLINE 100 MG TAB/CAP PO SCH (23:10)
[2019-08-11] MEDS: CHOLECALCIFEROL (VITD3) 1,000IU=25mCg TAB PO SCH (23:10)
[2019-08-11] MEDS: OSELTAMIVIR 30 MG CAP PO SCH (23:10)
[2019-08-11] MEDS: ASCORBIC ACID 1,000 MG TAB PO SCH (23:10)
[2019-08-11] MEDS: ENOXAPARIN SOD 40 MG/0.4 ML SYRINGE SC SCH (23:10)
[2019-08-11] MEDS ORDERED: ONDANSETRON HCL 4 MG/2 ML VIAL IV ONE (23:30)
[2019-08-11] MEDS ORDERED: ETOMIDATE (2MG/ML) 20ML VIAL IV ONE (23:30)
[2019-08-11] MEDS ORDERED: MORPHINE SULFATE 4 MG/ML SYR/VIAL IV ONE (23:30)
[2019-08-11] MEDS: InsuLIN REG 1unit/0.01ml Soln (100units/ml) SC SCH (23:35)
[2019-08-11] MEDS: ACCU-CHEK COMFORT CURVE STRIP VI SCH (23:35)
[2019-08-12] VITALS (74 sets, daily range): BP systolic 77–122; BP diastolic 32–69
[2019-08-12 04:03] LABS: Basophils # (auto) 0 10 ^3/uL (0-0.2); Basophils % (auto) 0.6 % (0.0-2.0); Eosinophils # (auto) 0 10 ^3/uL (0-0.8); Eosinophils % (auto) 0.6 % (0.0-7.0); Hematocrit 39.5 % (41.0-53.0); Hemoglobin 12.8 g/dL (13.5-17.5); Lymphocytes # (auto) 0.3 10 ^3/uL (0.4-5.4); Mean Corpuscular Hemoglobin 27.6 pg (28.0-32.0); Mean Corpuscular Hgb Conc. 32.3 g/dL (32.0-36.0); Mean Corpuscular Volume 85.4 fL (80.0-100.0); Monocytes # (auto) 0.8 10 ^3/uL (0-1.3); Monocytes % (auto) 11.3 % (0.0-12.0); Neutrophils # (auto) 6.1 10 ^3/uL (1.6-8.6); Neutrophils % (auto) 83.5 % (37.0-80.0); Platelet Count (auto) 248 10^3/uL (140-450); Red Blood Cells 4.63 10^6/uL (4.5-5.90); Red Cell Distribution Width 17.5 % (11.8-14.3); White Blood Cell 7.3 10^3/uL (4.4-10.8)
[2019-08-12 04:31] LABS: Albumin 1.8 g/dL (3.4-5.0); BUN/Creatinine Ratio 20.3; Calcium 7.9 mg/dL (8.5-10.1); Potassium 3.7 mmol/L (3.5-5.1)
[2019-08-12 04:34] LABS: Bilirubin, Total 1.2 mg/dL (0.2-1.0); Total Protein 6.3 g/dL (6.4-8.2)
[2019-08-12] MEDS: ACCU-CHEK COMFORT CURVE STRIP VI SCH ×4 (06:22→22:00)
[2019-08-12] MEDS: InsuLIN REG 1unit/0.01ml Soln (100units/ml) SC SCH ×4 (06:22→22:00)
[2019-08-12] MEDS ORDERED: NOREPINEPHRINE 8 MG/250ML KIT 250 ML IV ONE (08:52)
[2019-08-12] MEDS ORDERED: MORPHINE SULF INJ 2 MG/ML SYRINGE 1ML IV ONE (09:00)
[2019-08-12] MEDS: NOREPINEPHRINE 8 MG/250ML KIT 250 ML IV SCH (09:10)
[2019-08-12] MEDS: OSELTAMIVIR 30 MG CAP PO SCH ×2 (10:00→22:00)
[2019-08-12] MEDS: ZINC SULFATE 220mg CAP or TAB PO SCH (10:00)
[2019-08-12] MEDS: ASCORBIC ACID 1,000 MG TAB PO SCH (10:00)
[2019-08-12] MEDS: ENOXAPARIN SOD 40 MG/0.4 ML SYRINGE SC SCH (10:00)
[2019-08-12] MEDS: cefTRIAXone 1GM/50ML D5W 50 ML IV SCH (10:19)
[2019-08-12] MEDS: ALBUMIN 25% 100 ML IV SCH ×2 (10:20→17:56)
[2019-08-12] MEDS: DOXYCYCLINE 100 MG TAB/CAP PO SCH (10:21)
[2019-08-12] MEDS: CHOLECALCIFEROL (VITD3) 1,000IU=25mCg TAB PO SCH (10:21)
[2019-08-12] MEDS ORDERED: MORPHINE SULF INJ 2 MG/ML SYRINGE 1ML IV PRN (11:30)
[2019-08-12] MEDS ORDERED: HEPARIN 1,000 UNITS/ml 1ML VIAL ONE (12:01)
[2019-08-12] MEDS ORDERED: HEPARIN SODIUM (PORCINE) 5000 UNITS/ML 1ML VIAL IV ONE (13:15)
[2019-08-12] MEDS: IPRATROPIUM BROM 0.5 MG/2.5ML INH SOL NEB SCH ×2 (13:21→18:11)
[2019-08-12] MEDS: ALBUTEROL SULF 2.5 MG/0.5ML(0.5%) NEB SOLN NEB SCH ×2 (13:21→18:11)
[2019-08-12] MEDS: BUDESONIDE (INHALATION) 0.5 MG/2 ML NEB NEB SCH (18:12)
[2019-08-12] MEDS: FAMOTIDINE 20 MG TAB PO SCH (22:00)
[2019-08-13] VITALS (50 sets, daily range): BP systolic 85–115; BP diastolic 41–64
[2019-08-13] MEDS: IPRATROPIUM BROM 0.5 MG/2.5ML INH SOL NEB SCH ×4 (00:16→18:42)
[2019-08-13] MEDS: ALBUTEROL SULF 2.5 MG/0.5ML(0.5%) NEB SOLN NEB SCH ×4 (00:16→18:42)
[2019-08-13] MEDS: ALBUMIN 25% 100 ML IV SCH (02:00)
[2019-08-13] MEDS: InsuLIN REG 1unit/0.01ml Soln (100units/ml) SC SCH ×4 (06:08→22:00)
[2019-08-13] MEDS: ACCU-CHEK COMFORT CURVE STRIP VI SCH ×4 (06:08→22:00)
[2019-08-13] MEDS: BUDESONIDE (INHALATION) 0.5 MG/2 ML NEB NEB SCH ×2 (07:00→18:42)
[2019-08-13] MEDS ORDERED: SODIUM CHL 0.9% 1000 ML BAG XX ONE (07:00)
[2019-08-13] MEDS ORDERED: ALBUMIN 25% 100 ML IV PRN (08:00)
[2019-08-13] MEDS: cefTRIAXone 1GM/50ML D5W 50 ML IV SCH (12:21)
[2019-08-13] MEDS: NOREPINEPHRINE 8 MG/250ML KIT 250 ML IV SCH (12:22)
[2019-08-13] MEDS: OSELTAMIVIR 30 MG CAP PO SCH ×2 (12:22→23:16)
[2019-08-13] MEDS: ENOXAPARIN SOD 30 MG/0.3 ML SYRINGE SC SCH (12:23)
[2019-08-13] MEDS: MIDODRINE HCL 10 MG TAB PO SCH ×2 (12:23→18:08)
[2019-08-13] MEDS: FAMOTIDINE 20 MG TAB PO SCH (23:16)
[2019-08-14] VITALS (8 sets, daily range): BP systolic 88–98; BP diastolic 45–55
[2019-08-14] MEDS: HYDROcodone-ACET 5/325MG TAB PO PRN ×3 (00:07→22:17)
[2019-08-14] MEDS: IPRATROPIUM BROM 0.5 MG/2.5ML INH SOL NEB SCH ×4 (00:33→19:18)
[2019-08-14] MEDS: ALBUTEROL SULF 2.5 MG/0.5ML(0.5%) NEB SOLN NEB SCH ×4 (00:33→19:18)
[2019-08-14] MEDS: MIDODRINE HCL 10 MG TAB PO SCH ×5 (06:15→21:52)
[2019-08-14] MEDS: ACCU-CHEK COMFORT CURVE STRIP VI SCH ×4 (06:49→22:08)
[2019-08-14] MEDS: InsuLIN REG 1unit/0.01ml Soln (100units/ml) SC SCH ×4 (06:49→22:00)
[2019-08-14] MEDS: BUDESONIDE (INHALATION) 0.5 MG/2 ML NEB NEB SCH ×2 (07:40→19:18)
[2019-08-14 10:19] LABS: Basophils # (auto) 0 10 ^3/uL (0-0.2); Basophils % (auto) 0.3 % (0.0-2.0); Eosinophils # (auto) 0 10 ^3/uL (0-0.8); Eosinophils % (auto) 0.4 % (0.0-7.0); Hematocrit 34.3 % (41.0-53.0); Hemoglobin 11.2 g/dL (13.5-17.5); Lymphocytes # (auto) 0.2 10 ^3/uL (0.4-5.4); Mean Corpuscular Hemoglobin 27.6 pg (28.0-32.0); Mean Corpuscular Hgb Conc. 32.6 g/dL (32.0-36.0); Mean Corpuscular Volume 84.6 fL (80.0-100.0); Monocytes # (auto) 0.8 10 ^3/uL (0-1.3); Monocytes % (auto) 9.8 % (0.0-12.0); Neutrophils # (auto) 7.2 10 ^3/uL (1.6-8.6); Neutrophils % (auto) 86.5 % (37.0-80.0); Platelet Count (auto) 252 10^3/uL (140-450); Red Blood Cells 4.06 10^6/uL (4.5-5.90); Red Cell Distribution Width 17.4 % (11.8-14.3); White Blood Cell 8.4 10^3/uL (4.4-10.8)
[2019-08-14 10:30] LABS: Albumin 2.4 g/dL (3.4-5.0); Calcium 7.9 mg/dL (8.5-10.1); Magnesium 2.6 mg/dL (1.6-2.6); Potassium 4.1 mmol/L (3.5-5.1)
[2019-08-14 10:34] LABS: BUN/Creatinine Ratio 14.8; Bilirubin, Total 0.9 mg/dL (0.2-1.0); Phosphorus 2.9 mg/dL (2.5-4.90); Total Protein 5.9 g/dL (6.4-8.2)
[2019-08-14] MEDS: cefTRIAXone 1GM/50ML D5W 50 ML IV SCH (10:37)
[2019-08-14] MEDS: ENOXAPARIN SOD 30 MG/0.3 ML SYRINGE SC SCH (10:38)
[2019-08-14] MEDS: OSELTAMIVIR 30 MG CAP PO SCH ×2 (10:38→22:16)
[2019-08-14] MEDS: FAMOTIDINE 20 MG TAB PO SCH (22:16)
[2019-08-15] VITALS: BP 110/50
[2019-08-15] MEDS: TEMAZEPAM 15 MG CAP PO PRN ×2 (00:14→22:38)
[2019-08-15] MEDS: ALBUTEROL SULF 2.5 MG/0.5ML(0.5%) NEB SOLN NEB SCH ×4 (00:55→18:33)
[2019-08-15] MEDS: IPRATROPIUM BROM 0.5 MG/2.5ML INH SOL NEB SCH ×4 (00:55→18:33)
[2019-08-15 04:00] VITALS: BP 104/65
[2019-08-15] MEDS: BUDESONIDE (INHALATION) 0.5 MG/2 ML NEB NEB SCH ×2 (06:24→18:33)
[2019-08-15] MEDS: InsuLIN REG 1unit/0.01ml Soln (100units/ml) SC SCH ×4 (07:00→22:00)
[2019-08-15] MEDS: ACCU-CHEK COMFORT CURVE STRIP VI SCH ×4 (07:00→22:00)
[2019-08-15 08:00] VITALS: BP 102/60
[2019-08-15] MEDS: cefTRIAXone 1GM/50ML D5W 50 ML IV SCH (09:01)
[2019-08-15 09:51] LABS: Basophils # (auto) 0 10 ^3/uL (0-0.2); Basophils % (auto) 0.2 % (0.0-2.0); Eosinophils # (auto) 0.1 10 ^3/uL (0-0.8); Eosinophils % (auto) 0.7 % (0.0-7.0); Hemoglobin 11.4 g/dL (13.5-17.5); Lymphocytes # (auto) 0.3 10 ^3/uL (0.4-5.4); Lymphocytes % (auto) 4.6 % (10.0-50.0); Mean Corpuscular Hemoglobin 27.5 pg (28.0-32.0); Mean Corpuscular Hgb Conc. 32.5 g/dL (32.0-36.0); Mean Corpuscular Volume 84.6 fL (80.0-100.0); Monocytes # (auto) 0.9 10 ^3/uL (0-1.3); Monocytes % (auto) 11.7 % (0.0-12.0); Neutrophils # (auto) 6.2 10 ^3/uL (1.6-8.6); Neutrophils % (auto) 82.8 % (37.0-80.0); Platelet Count (auto) 251 10^3/uL (140-450); Red Blood Cells 4.13 10^6/uL (4.5-5.90); Red Cell Distribution Width 17.2 % (11.8-14.3); White Blood Cell 7.5 10^3/uL (4.4-10.8)
[2019-08-15 10:07] LABS: Albumin 2.3 g/dL (3.4-5.0); Calcium 8.1 mg/dL (8.5-10.1); Potassium 4.2 mmol/L (3.5-5.1)
[2019-08-15 10:11] LABS: BUN/Creatinine Ratio 16.9; Bilirubin, Total 0.9 mg/dL (0.2-1.0); Total Protein 6.4 g/dL (6.4-8.2)
[2019-08-15] MEDS: ENOXAPARIN SOD 30 MG/0.3 ML SYRINGE SC SCH (10:22)
[2019-08-15] MEDS: OSELTAMIVIR 30 MG CAP PO SCH ×2 (10:22→22:39)
[2019-08-15] MEDS: HYDROcodone-ACET 5/325MG TAB PO PRN ×2 (10:32→22:40)
[2019-08-15 16:00] VITALS: BP 109/64
[2019-08-15] MEDS: MIDODRINE HCL 10 MG TAB PO SCH (17:39)
[2019-08-15] MEDS: FAMOTIDINE 20 MG TAB PO SCH (22:38)
[2019-08-15 23:00] VITALS: BP 102/63
[2019-08-16] MEDS: IPRATROPIUM BROM 0.5 MG/2.5ML INH SOL NEB SCH ×4 (00:19→19:03)
[2019-08-16] MEDS: ALBUTEROL SULF 2.5 MG/0.5ML(0.5%) NEB SOLN NEB SCH ×4 (00:19→19:03)
[2019-08-16 05:00] VITALS: BP 94/52
[2019-08-16] MEDS: InsuLIN REG 1unit/0.01ml Soln (100units/ml) SC SCH ×4 (07:00→21:51)
[2019-08-16] MEDS ORDERED: SODIUM CHL 0.9% 1000 ML BAG XX ONE (07:00)
[2019-08-16 07:08] LABS: Basophils # (auto) 0 10 ^3/uL (0-0.2); Basophils % (auto) 0.3 % (0.0-2.0); Eosinophils # (auto) 0 10 ^3/uL (0-0.8); Eosinophils % (auto) 0.7 % (0.0-7.0); Hemoglobin 11.8 g/dL (13.5-17.5); Lymphocytes # (auto) 0.4 10 ^3/uL (0.4-5.4); Lymphocytes % (auto) 5.4 % (10.0-50.0); Mean Corpuscular Volume 84.3 fL (80.0-100.0); Monocytes # (auto) 0.8 10 ^3/uL (0-1.3); Monocytes % (auto) 11.7 % (0.0-12.0); Neutrophils # (auto) 5.4 10 ^3/uL (1.6-8.6); Neutrophils % (auto) 81.9 % (37.0-80.0); Nucleated Red Blood Cells % 0.1 %; Platelet Count (auto) 258 10^3/uL (140-450); Red Blood Cells 4.39 10^6/uL (4.5-5.90); Red Cell Distribution Width 17.6 % (11.8-14.3); White Blood Cell 6.6 10^3/uL (4.4-10.8)
[2019-08-16] MEDS: BUDESONIDE (INHALATION) 0.5 MG/2 ML NEB NEB SCH ×2 (07:20→19:04)
[2019-08-16 07:23] LABS: BUN/Creatinine Ratio 18.5; Calcium 8.5 mg/dL (8.5-10.1); Potassium 4.5 mmol/L (3.5-5.1)
[2019-08-16 07:25] LABS: INR 1.23 (0.9-1.15)
[2019-08-16 08:00] VITALS: BP 107/62
[2019-08-16] MEDS: MIDODRINE HCL 10 MG TAB PO SCH ×3 (08:40→17:23)
[2019-08-16] MEDS: cefTRIAXone 1GM/50ML D5W 50 ML IV SCH (08:47)
[2019-08-16] MEDS: ACCU-CHEK COMFORT CURVE STRIP VI SCH ×4 (08:49→21:52)
[2019-08-16] MEDS: OSELTAMIVIR 30 MG CAP PO SCH (08:50)
[2019-08-16] MEDS: ENOXAPARIN SOD 30 MG/0.3 ML SYRINGE SC SCH (08:51)
[2019-08-16 12:00] VITALS: BP 119/69
[2019-08-16 13:48] LABS: Cholesterol 102 mg/dL (< 200); HDL Cholesterol 24 mg/dL (40-59); LDL Cholesterol 71 mg/dL (< 100); Triglycerides 96 mg/dL (< 150)
[2019-08-16 15:44] VITALS: BP 105/53
[2019-08-16 20:15] VITALS: BP 109/57
[2019-08-16] MEDS: FAMOTIDINE 20 MG TAB PO SCH (21:49)
[2019-08-17] MEDS: IPRATROPIUM BROM 0.5 MG/2.5ML INH SOL NEB SCH ×5 (01:06→23:21)
[2019-08-17] MEDS: ALBUTEROL SULF 2.5 MG/0.5ML(0.5%) NEB SOLN NEB SCH ×5 (01:06→23:21)
[2019-08-17] MEDS: HYDROcodone-ACET 5/325MG TAB PO PRN (03:42)
[2019-08-17 05:34] VITALS: BP 112/68
[2019-08-17] MEDS: MIDODRINE HCL 10 MG TAB PO SCH ×4 (05:46→18:53)
[2019-08-17] MEDS: InsuLIN REG 1unit/0.01ml Soln (100units/ml) SC SCH ×4 (05:53→20:57)
[2019-08-17] MEDS: ACCU-CHEK COMFORT CURVE STRIP VI SCH ×4 (06:05→20:57)
[2019-08-17] MEDS: BUDESONIDE (INHALATION) 0.5 MG/2 ML NEB NEB SCH ×2 (06:56→18:30)
[2019-08-17 08:00] VITALS: BP 107/63
[2019-08-17] MEDS: cefTRIAXone 1GM/50ML D5W 50 ML IV SCH (09:53)
[2019-08-17] MEDS: ENOXAPARIN SOD 30 MG/0.3 ML SYRINGE SC SCH (09:53)
[2019-08-17 12:00] VITALS: BP 120/68
[2019-08-17 16:58] VITALS: BP 114/58
[2019-08-17 19:33] VITALS: BP 114/58
[2019-08-17] MEDS: FAMOTIDINE 20 MG TAB PO SCH (20:57)
[2019-08-17 22:00] VITALS: BP 118/66
[2019-08-18 05:34] VITALS: BP 102/52
[2019-08-18] MEDS: MIDODRINE HCL 10 MG TAB PO SCH ×3 (06:15→17:46)
[2019-08-18] MEDS: InsuLIN REG 1unit/0.01ml Soln (100units/ml) SC SCH ×4 (06:15→22:00)
[2019-08-18] MEDS: ACCU-CHEK COMFORT CURVE STRIP VI SCH ×4 (06:16→22:13)
[2019-08-18] MEDS: BUDESONIDE (INHALATION) 0.5 MG/2 ML NEB NEB SCH ×2 (07:18→18:25)
[2019-08-18] MEDS: ALBUTEROL SULF 2.5 MG/0.5ML(0.5%) NEB SOLN NEB SCH ×4 (07:18→23:33)
[2019-08-18] MEDS: IPRATROPIUM BROM 0.5 MG/2.5ML INH SOL NEB SCH ×4 (07:18→23:33)
[2019-08-18 09:00] VITALS: BP 106/66
[2019-08-18] MEDS: cefTRIAXone 1GM/50ML D5W 50 ML IV SCH (09:42)
[2019-08-18] MEDS: ENOXAPARIN SOD 30 MG/0.3 ML SYRINGE SC SCH (09:43)
[2019-08-18 13:00] VITALS: BP 116/64
[2019-08-18 17:00] VITALS: BP 124/89
[2019-08-18 20:00] VITALS: BP 102/59
[2019-08-18 22:00] VITALS: BP 102/59
[2019-08-18] MEDS: FAMOTIDINE 20 MG TAB PO SCH (22:13)
[2019-08-19 05:00] VITALS: BP 94/49
[2019-08-19] MEDS: MIDODRINE HCL 10 MG TAB PO SCH ×3 (05:35→18:37)
[2019-08-19] MEDS: ACCU-CHEK COMFORT CURVE STRIP VI SCH ×4 (06:30→21:30)
[2019-08-19] MEDS: InsuLIN REG 1unit/0.01ml Soln (100units/ml) SC SCH ×4 (06:30→21:30)
[2019-08-19] MEDS ORDERED: SODIUM CHL 0.9% 1000 ML BAG XX ONE (07:00)
[2019-08-19] MEDS: ALBUTEROL SULF 2.5 MG/0.5ML(0.5%) NEB SOLN NEB SCH ×3 (07:31→18:07)
[2019-08-19] MEDS: IPRATROPIUM BROM 0.5 MG/2.5ML INH SOL NEB SCH ×3 (07:31→18:07)
[2019-08-19] MEDS: BUDESONIDE (INHALATION) 0.5 MG/2 ML NEB NEB SCH ×2 (07:32→18:07)
[2019-08-19 09:00] VITALS: BP 92/45
[2019-08-19] MEDS: cefTRIAXone 1GM/50ML D5W 50 ML IV SCH (09:43)
[2019-08-19] MEDS: ENOXAPARIN SOD 30 MG/0.3 ML SYRINGE SC SCH (10:00)
[2019-08-19 13:00] VITALS: BP 102/61
[2019-08-19 17:00] VITALS: BP 103/63
[2019-08-19 20:00] VITALS: BP 109/75
[2019-08-19] MEDS: FAMOTIDINE 20 MG TAB PO SCH (21:30)
[2019-08-19 22:00] VITALS: BP 109/75
[2019-08-20] MEDS: ALBUTEROL SULF 2.5 MG/0.5ML(0.5%) NEB SOLN NEB SCH ×4 (00:02→20:23)
[2019-08-20] MEDS: IPRATROPIUM BROM 0.5 MG/2.5ML INH SOL NEB SCH ×4 (00:02→20:23)
[2019-08-20 05:00] VITALS: BP 120/57
[2019-08-20] MEDS: MIDODRINE HCL 10 MG TAB PO SCH ×3 (06:22→17:37)
[2019-08-20] MEDS: InsuLIN REG 1unit/0.01ml Soln (100units/ml) SC SCH ×4 (06:22→22:00)
[2019-08-20] MEDS: ACCU-CHEK COMFORT CURVE STRIP VI SCH ×4 (06:22→22:49)
[2019-08-20] MEDS: BUDESONIDE (INHALATION) 0.5 MG/2 ML NEB NEB SCH ×2 (06:58→20:24)
[2019-08-20] MEDS: cefTRIAXone 1GM/50ML D5W 50 ML IV SCH (08:35)
[2019-08-20 09:00] VITALS: BP 118/72
[2019-08-20] MEDS: ENOXAPARIN SOD 30 MG/0.3 ML SYRINGE SC SCH (09:51)
[2019-08-20 13:00] VITALS: BP 103/62
[2019-08-20 17:00] VITALS: BP 106/68
[2019-08-20 22:00] VITALS: BP 105/46
[2019-08-20] MEDS: FAMOTIDINE 20 MG TAB PO SCH (22:45)
[2019-08-21] MEDS: IPRATROPIUM BROM 0.5 MG/2.5ML INH SOL NEB SCH ×5 (00:16→23:57)
[2019-08-21] MEDS: ALBUTEROL SULF 2.5 MG/0.5ML(0.5%) NEB SOLN NEB SCH ×5 (00:16→23:57)
[2019-08-21 00:58] VITALS: BP 105/46
[2019-08-21 05:00] VITALS: BP_SYST 138; BP_SYST 96; BP_DIAS 42; BP_DIAS 56
[2019-08-21] MEDS: MIDODRINE HCL 10 MG TAB PO SCH ×3 (05:57→17:14)
[2019-08-21] MEDS: InsuLIN REG 1unit/0.01ml Soln (100units/ml) SC SCH ×4 (06:45→21:30)
[2019-08-21] MEDS: ACCU-CHEK COMFORT CURVE STRIP VI SCH ×4 (06:45→23:28)
[2019-08-21] MEDS: BUDESONIDE (INHALATION) 0.5 MG/2 ML NEB NEB SCH ×2 (06:54→19:26)
[2019-08-21 07:17] LABS: Basophils # (auto) 0 10 ^3/uL (0-0.2); Basophils % (auto) 0.4 % (0.0-2.0); Eosinophils # (auto) 0 10 ^3/uL (0-0.8); Eosinophils % (auto) 0.4 % (0.0-7.0); Hematocrit 34.1 % (41.0-53.0); Hemoglobin 11.2 g/dL (13.5-17.5); Lymphocytes # (auto) 0.4 10 ^3/uL (0.4-5.4); Lymphocytes % (auto) 4.4 % (10.0-50.0); Mean Corpuscular Hemoglobin 27.5 pg (28.0-32.0); Mean Corpuscular Hgb Conc. 32.9 g/dL (32.0-36.0); Mean Corpuscular Volume 83.6 fL (80.0-100.0); Monocytes # (auto) 0.9 10 ^3/uL (0-1.3); Monocytes % (auto) 10.7 % (0.0-12.0); Neutrophils % (auto) 84.1 % (37.0-80.0); Platelet Count (auto) 225 10^3/uL (140-450); Red Blood Cells 4.08 10^6/uL (4.5-5.90); Red Cell Distribution Width 17.9 % (11.8-14.3); White Blood Cell 8.3 10^3/uL (4.4-10.8)
[2019-08-21 07:42] LABS: Potassium 4.4 mmol/L (3.5-5.1)
[2019-08-21 07:45] LABS: Bilirubin, Total 0.9 mg/dL (0.2-1.0); Total Protein 6.3 g/dL (6.4-8.2)
[2019-08-21 09:00] VITALS: BP 105/54
[2019-08-21] MEDS: ENOXAPARIN SOD 30 MG/0.3 ML SYRINGE SC SCH (10:00)
[2019-08-21] MEDS: cefTRIAXone 1GM/50ML D5W 50 ML IV SCH (10:35)
[2019-08-21 11:08] LABS: INR 1.24 (0.9-1.15)
[2019-08-21 13:00] VITALS: BP 107/67
[2019-08-21 17:00] VITALS: BP 115/60
[2019-08-21 20:48] VITALS: BP 116/70
[2019-08-21] MEDS: FAMOTIDINE 20 MG TAB PO SCH (21:31)
[2019-08-22] MEDS: ALBUTEROL SULF 2.5 MG/0.5ML(0.5%) NEB SOLN NEB SCH ×4 (00:15→18:26)
[2019-08-22] MEDS: IPRATROPIUM BROM 0.5 MG/2.5ML INH SOL NEB SCH ×4 (00:15→18:26)
[2019-08-22 05:10] VITALS: BP 120/78
[2019-08-22 05:45] LABS: Basophils # (auto) 0.1 10 ^3/uL (0-0.2); Basophils % (auto) 0.6 % (0.0-2.0); Eosinophils # (auto) 0 10 ^3/uL (0-0.8); Eosinophils % (auto) 0.4 % (0.0-7.0); Hematocrit 35.4 % (41.0-53.0); Hemoglobin 11.3 g/dL (13.5-17.5); Lymphocytes # (auto) 0.6 10 ^3/uL (0.4-5.4); Lymphocytes % (auto) 6.1 % (10.0-50.0); Mean Corpuscular Volume 84.2 fL (80.0-100.0); Monocytes # (auto) 1.1 10 ^3/uL (0-1.3); Monocytes % (auto) 11.3 % (0.0-12.0); Neutrophils # (auto) 7.6 10 ^3/uL (1.6-8.6); Neutrophils % (auto) 81.6 % (37.0-80.0); Nucleated Red Blood Cells % 0.1 %; Platelet Count (auto) 251 10^3/uL (140-450); White Blood Cell 9.3 10^3/uL (4.4-10.8)
[2019-08-22] MEDS: MIDODRINE HCL 10 MG TAB PO SCH ×3 (06:00→17:13)
[2019-08-22 06:02] LABS: Potassium 4.8 mmol/L (3.5-5.1)
[2019-08-22 06:07] LABS: BUN/Creatinine Ratio 20.2; Bilirubin, Total 0.8 mg/dL (0.2-1.0); Total Protein 6.4 g/dL (6.4-8.2)
[2019-08-22] MEDS: BUDESONIDE (INHALATION) 0.5 MG/2 ML NEB NEB SCH ×2 (06:08→18:26)
[2019-08-22] MEDS: InsuLIN REG 1unit/0.01ml Soln (100units/ml) SC SCH ×4 (07:00→22:00)
[2019-08-22] MEDS: ACCU-CHEK COMFORT CURVE STRIP VI SCH ×4 (07:00→22:00)
[2019-08-22 09:00] VITALS: BP 117/72
[2019-08-22] MEDS: cefTRIAXone 1GM/50ML D5W 50 ML IV SCH (09:55)
[2019-08-22] MEDS: ENOXAPARIN SOD 30 MG/0.3 ML SYRINGE SC SCH ×2 (09:55→10:00)
[2019-08-22 13:00] VITALS: BP 106/65
[2019-08-22 16:56] VITALS: BP 115/63
[2019-08-22 22:00] VITALS: BP 110/65
[2019-08-22] MEDS: FAMOTIDINE 20 MG TAB PO SCH (22:00)
[2019-08-23] MEDS: OSELTAMIVIR 30 MG CAP PO SCH (01:06)
[2019-08-23] MEDS: ALBUTEROL SULF 2.5 MG/0.5ML(0.5%) NEB SOLN NEB PRN (04:02)
[2019-08-23 05:00] VITALS: BP 109/64
[2019-08-23] MEDS: HYDROcodone-ACET 5/325MG TAB PO PRN (05:35)
[2019-08-23] MEDS: MIDODRINE HCL 10 MG TAB PO SCH ×2 (06:00→11:52)
[2019-08-23 06:23] LABS: Basophils # (auto) 0 10 ^3/uL (0-0.2); Basophils % (auto) 0.3 % (0.0-2.0); Eosinophils # (auto) 0 10 ^3/uL (0-0.8); Eosinophils % (auto) 0.2 % (0.0-7.0); Hematocrit 34.2 % (41.0-53.0); Hemoglobin 11.3 g/dL (13.5-17.5); Lymphocytes # (auto) 0.5 10 ^3/uL (0.4-5.4); Lymphocytes % (auto) 4.8 % (10.0-50.0); Mean Corpuscular Hemoglobin 27.6 pg (28.0-32.0); Mean Corpuscular Hgb Conc. 33.2 g/dL (32.0-36.0); Mean Corpuscular Volume 83.1 fL (80.0-100.0); Monocytes # (auto) 0.9 10 ^3/uL (0-1.3); Monocytes % (auto) 9.1 % (0.0-12.0); Neutrophils # (auto) 8.7 10 ^3/uL (1.6-8.6); Neutrophils % (auto) 85.6 % (37.0-80.0); Platelet Count (auto) 241 10^3/uL (140-450); Red Blood Cells 4.11 10^6/uL (4.5-5.90); Red Cell Distribution Width 17.8 % (11.8-14.3); White Blood Cell 10.2 10^3/uL (4.4-10.8)
[2019-08-23 06:27] LABS: INR 1.23 (0.9-1.15)
[2019-08-23] MEDS: ALBUTEROL SULF 2.5 MG/0.5ML(0.5%) NEB SOLN NEB SCH ×4 (06:31→18:48)
[2019-08-23] MEDS: IPRATROPIUM BROM 0.5 MG/2.5ML INH SOL NEB SCH ×4 (06:31→18:48)
[2019-08-23 06:35] LABS: Potassium 4.7 mmol/L (3.5-5.1)
[2019-08-23] MEDS: InsuLIN REG 1unit/0.01ml Soln (100units/ml) SC SCH ×4 (06:45→21:32)
[2019-08-23] MEDS: ACCU-CHEK COMFORT CURVE STRIP VI SCH ×4 (06:46→21:32)
[2019-08-23 06:54] LABS: BUN/Creatinine Ratio 21.6; Bilirubin, Total 0.9 mg/dL (0.2-1.0); Calcium 8.1 mg/dL (8.5-10.1); Magnesium 2.7 mg/dL (1.6-2.6); Phosphorus 2.6 mg/dL (2.5-4.90); Total Protein 6.4 g/dL (6.4-8.2)
[2019-08-23 08:00] VITALS: BP 122/74
[2019-08-23] MEDS: ENOXAPARIN SOD 30 MG/0.3 ML SYRINGE SC SCH (10:00)
[2019-08-23] MEDS: cefTRIAXone 1GM/50ML D5W 50 ML IV SCH (10:27)
[2019-08-23] MEDS: BUDESONIDE (INHALATION) 0.5 MG/2 ML NEB NEB SCH ×2 (11:38→18:48)
[2019-08-23 12:00] VITALS: BP 120/75
[2019-08-23] MEDS ORDERED: LIDOCAINE 2%HCL (LOCAL ANESTH.) INJ 20ML MDV ONE (12:10)
[2019-08-23] MEDS ORDERED: MIDAZOLAM HCL 1MG/1ML-2 ML VIAL IV ONE (12:45)
[2019-08-23] MEDS ORDERED: fentaNYL CITRATE 100 MCG/2 ML VL IV ONE (12:45)
[2019-08-23] MEDS ORDERED: ALTEPLASE 2MG CATHFLO 10 MG in STERILE WATER 30 ML IV ONE (16:45)
[2019-08-23 17:00] VITALS: BP 107/58
[2019-08-23 21:06] VITALS: BP 107/58
[2019-08-23] MEDS: CARVEDILOL 3.125 MG TAB PO SCH (21:30)
[2019-08-23] MEDS: FAMOTIDINE 20 MG TAB PO SCH (21:31)
[2019-08-23 22:00] VITALS: BP 101/56
[2019-08-24] MEDS: ALBUTEROL SULF 2.5 MG/0.5ML(0.5%) NEB SOLN NEB SCH ×4 (00:46→18:48)
[2019-08-24] MEDS: IPRATROPIUM BROM 0.5 MG/2.5ML INH SOL NEB SCH ×4 (00:46→18:48)
[2019-08-24] MEDS ORDERED: OSELTAMIVIR 30 MG CAP PO ONE (01:06)
[2019-08-24 05:38] VITALS: BP 104/58
[2019-08-24 06:05] LABS: Basophils # (auto) 0 10 ^3/uL (0-0.2); Basophils % (auto) 0.3 % (0.0-2.0); Eosinophils # (auto) 0 10 ^3/uL (0-0.8); Eosinophils % (auto) 0.1 % (0.0-7.0); Hematocrit 35.4 % (41.0-53.0); Hemoglobin 11.1 g/dL (13.5-17.5); Lymphocytes # (auto) 0.4 10 ^3/uL (0.4-5.4); Lymphocytes % (auto) 3.1 % (10.0-50.0); Mean Corpuscular Hemoglobin 26.5 pg (28.0-32.0); Mean Corpuscular Hgb Conc. 31.4 g/dL (32.0-36.0); Mean Corpuscular Volume 84.5 fL (80.0-100.0); Monocytes # (auto) 0.8 10 ^3/uL (0-1.3); Monocytes % (auto) 6.8 % (0.0-12.0); Neutrophils # (auto) 10.5 10 ^3/uL (1.6-8.6); Neutrophils % (auto) 89.7 % (37.0-80.0); Nucleated Red Blood Cells % 0.1 %; Platelet Count (auto) 248 10^3/uL (140-450); Red Blood Cells 4.19 10^6/uL (4.5-5.90); Red Cell Distribution Width 17.8 % (11.8-14.3); White Blood Cell 11.8 10^3/uL (4.4-10.8)
[2019-08-24] MEDS: ACCU-CHEK COMFORT CURVE STRIP VI SCH ×4 (06:31→22:21)
[2019-08-24] MEDS: InsuLIN REG 1unit/0.01ml Soln (100units/ml) SC SCH ×4 (06:32→22:00)
[2019-08-24 06:33] LABS: Potassium 5.1 mmol/L (3.5-5.1)
[2019-08-24 06:54] LABS: BUN/Creatinine Ratio 22.5; Calcium 8.3 mg/dL (8.5-10.1); Total Protein 6.4 g/dL (6.4-8.2)
[2019-08-24] MEDS ORDERED: SODIUM CHL 0.9% 1000 ML BAG XX ONE (07:00)
[2019-08-24 08:34] VITALS: BP 90/56
[2019-08-24] MEDS: cefTRIAXone 1GM/50ML D5W 50 ML IV SCH (09:07)
[2019-08-24] MEDS: ENOXAPARIN SOD 30 MG/0.3 ML SYRINGE SC SCH (09:52)
[2019-08-24] MEDS: ENALAPRIL MALEATE 2.5 MG TAB PO SCH (09:59)
[2019-08-24] MEDS: CARVEDILOL 3.125 MG TAB PO SCH ×2 (09:59→22:35)
[2019-08-24] MEDS: BUDESONIDE (INHALATION) 0.5 MG/2 ML NEB NEB SCH ×2 (11:00→18:48)
[2019-08-24] MEDS: OSELTAMIVIR 30 MG CAP PO SCH ×2 (12:17→22:34)
[2019-08-24 12:38] VITALS: BP_SYST 102; BP_SYST 87; BP_DIAS 57
[2019-08-24] MEDS ORDERED: HEPARIN 1,000 UNITS/ml 1ML VIAL IV ONE (13:15)
[2019-08-24 16:56] VITALS: BP 92/55
[2019-08-24] MEDS ORDERED: ALTEPLASE 2MG CATHFLO 10 MG in STERILE WATER 30 ML IV ONE (18:00)
[2019-08-24 22:00] VITALS: BP 114/63
[2019-08-24] MEDS: FAMOTIDINE 20 MG TAB PO SCH (22:00)
[2019-08-25] MEDS: IPRATROPIUM BROM 0.5 MG/2.5ML INH SOL NEB SCH ×4 (00:23→19:42)
[2019-08-25] MEDS: ALBUTEROL SULF 2.5 MG/0.5ML(0.5%) NEB SOLN NEB SCH ×4 (00:23→19:42)
[2019-08-25 05:00] VITALS: BP 100/62
[2019-08-25 05:50] LABS: Basophils # (auto) 0 10 ^3/uL (0-0.2); Basophils % (auto) 0.3 % (0.0-2.0); Eosinophils # (auto) 0 10 ^3/uL (0-0.8); Eosinophils % (auto) 0.3 % (0.0-7.0); Hematocrit 33.3 % (41.0-53.0); Hemoglobin 10.8 g/dL (13.5-17.5); Lymphocytes # (auto) 0.3 10 ^3/uL (0.4-5.4); Lymphocytes % (auto) 3.4 % (10.0-50.0); Mean Corpuscular Hemoglobin 27.3 pg (28.0-32.0); Mean Corpuscular Hgb Conc. 32.5 g/dL (32.0-36.0); Monocytes # (auto) 0.8 10 ^3/uL (0-1.3); Monocytes % (auto) 9.1 % (0.0-12.0); Neutrophils # (auto) 7.7 10 ^3/uL (1.6-8.6); Neutrophils % (auto) 86.9 % (37.0-80.0); Platelet Count (auto) 198 10^3/uL (140-450); Red Blood Cells 3.96 10^6/uL (4.5-5.90); Red Cell Distribution Width 17.6 % (11.8-14.3); White Blood Cell 8.9 10^3/uL (4.4-10.8)
[2019-08-25 06:02] LABS: Potassium 4.4 mmol/L (3.5-5.1)
[2019-08-25] MEDS: BUDESONIDE (INHALATION) 0.5 MG/2 ML NEB NEB SCH ×2 (06:11→19:42)
[2019-08-25 06:27] LABS: Albumin 1.8 g/dL (3.4-5.0); BUN/Creatinine Ratio 19.4; Bilirubin, Total 0.8 mg/dL (0.2-1.0); Calcium 8.2 mg/dL (8.5-10.1); Total Protein 5.9 g/dL (6.4-8.2)
[2019-08-25] MEDS: InsuLIN REG 1unit/0.01ml Soln (100units/ml) SC SCH ×4 (06:39→22:00)
[2019-08-25] MEDS: ACCU-CHEK COMFORT CURVE STRIP VI SCH ×4 (06:39→22:00)
[2019-08-25 09:00] VITALS: BP 96/55
[2019-08-25] MEDS: cefTRIAXone 1GM/50ML D5W 50 ML IV SCH (09:21)
[2019-08-25] MEDS: CARVEDILOL 3.125 MG TAB PO SCH ×3 (09:22→23:26)
[2019-08-25] MEDS: OSELTAMIVIR 30 MG CAP PO SCH ×2 (09:22→22:26)
[2019-08-25] MEDS: ENALAPRIL MALEATE 2.5 MG TAB PO SCH (09:58)
[2019-08-25 12:18] VITALS: BP 111/43
[2019-08-25 17:00] VITALS: BP 95/54
[2019-08-25 22:00] VITALS: BP 98/55
[2019-08-25] MEDS: FAMOTIDINE 20 MG TAB PO SCH (22:00)
[2019-08-26 05:00] VITALS: BP 105/62
[2019-08-26] MEDS: InsuLIN REG 1unit/0.01ml Soln (100units/ml) SC SCH ×4 (05:42→22:00)
[2019-08-26] MEDS: ACCU-CHEK COMFORT CURVE STRIP VI SCH ×4 (05:43→22:16)
[2019-08-26 05:57] LABS: Basophils # (auto) 0 10 ^3/uL (0-0.2); Basophils % (auto) 0.3 % (0.0-2.0); Eosinophils # (auto) 0.1 10 ^3/uL (0-0.8); Eosinophils % (auto) 0.6 % (0.0-7.0); Hemoglobin 10.7 g/dL (13.5-17.5); Lymphocytes # (auto) 0.3 10 ^3/uL (0.4-5.4); Lymphocytes % (auto) 3.4 % (10.0-50.0); Mean Corpuscular Hgb Conc. 32.3 g/dL (32.0-36.0); Mean Corpuscular Volume 83.6 fL (80.0-100.0); Monocytes # (auto) 0.8 10 ^3/uL (0-1.3); Monocytes % (auto) 7.7 % (0.0-12.0); Neutrophils # (auto) 8.6 10 ^3/uL (1.6-8.6); Platelet Count (auto) 208 10^3/uL (140-450); Red Blood Cells 3.94 10^6/uL (4.5-5.90); Red Cell Distribution Width 17.6 % (11.8-14.3); White Blood Cell 9.7 10^3/uL (4.4-10.8)
[2019-08-26] MEDS: IPRATROPIUM BROM 0.5 MG/2.5ML INH SOL NEB SCH ×4 (06:05→18:09)
[2019-08-26] MEDS: ALBUTEROL SULF 2.5 MG/0.5ML(0.5%) NEB SOLN NEB SCH ×4 (06:05→18:09)
[2019-08-26] MEDS: BUDESONIDE (INHALATION) 0.5 MG/2 ML NEB NEB SCH ×2 (06:05→18:09)
[2019-08-26 06:14] LABS: Albumin 1.8 g/dL (3.4-5.0); Calcium 8.1 mg/dL (8.5-10.1); Potassium 4.3 mmol/L (3.5-5.1)
[2019-08-26 06:18] LABS: BUN/Creatinine Ratio 21.6; Bilirubin, Total 0.7 mg/dL (0.2-1.0); Total Protein 6.1 g/dL (6.4-8.2)
[2019-08-26 09:00] VITALS: BP 105/56
[2019-08-26] MEDS: ENALAPRIL MALEATE 2.5 MG TAB PO SCH (10:00)
[2019-08-26] MEDS: cefTRIAXone 1GM/50ML D5W 50 ML IV SCH (10:10)
[2019-08-26] MEDS: OSELTAMIVIR 30 MG CAP PO SCH ×2 (10:11→22:05)
[2019-08-26 13:00] VITALS: BP 110/74
[2019-08-26 15:22] VITALS: BP 105/56
[2019-08-26 16:36] VITALS: BP 103/61
[2019-08-26] MEDS: FAMOTIDINE 20 MG TAB PO SCH (22:00)
[2019-08-26] MEDS: CARVEDILOL 3.125 MG TAB PO SCH (22:05)
[2019-08-26] MEDS: ALBUTEROL SULF 2.5 MG/0.5ML(0.5%) NEB SOLN NEB PRN (22:06)
[2019-08-26] MEDS ORDERED: HYDR-4833 PO (22:23)
[2019-08-26] MEDS ORDERED: HYDROcodone-ACET 5/325MG TAB PO PRN (23:30)
[2019-08-27] MEDS: IPRATROPIUM BROM 0.5 MG/2.5ML INH SOL NEB SCH ×4 (00:09→18:18)
[2019-08-27] MEDS: ALBUTEROL SULF 2.5 MG/0.5ML(0.5%) NEB SOLN NEB SCH ×4 (00:10→18:18)
[2019-08-27 05:11] VITALS: BP 103/57
[2019-08-27 06:02] LABS: Basophils # (auto) 0 10 ^3/uL (0-0.2); Basophils % (auto) 0.4 % (0.0-2.0); Eosinophils # (auto) 0 10 ^3/uL (0-0.8); Eosinophils % (auto) 0.5 % (0.0-7.0); Hematocrit 34.4 % (41.0-53.0); Hemoglobin 11.2 g/dL (13.5-17.5); Lymphocytes # (auto) 0.3 10 ^3/uL (0.4-5.4); Lymphocytes % (auto) 4.3 % (10.0-50.0); Mean Corpuscular Hemoglobin 27.1 pg (28.0-32.0); Mean Corpuscular Hgb Conc. 32.4 g/dL (32.0-36.0); Mean Corpuscular Volume 83.7 fL (80.0-100.0); Monocytes # (auto) 0.6 10 ^3/uL (0-1.3); Monocytes % (auto) 8.4 % (0.0-12.0); Neutrophils # (auto) 6.6 10 ^3/uL (1.6-8.6); Neutrophils % (auto) 86.4 % (37.0-80.0); Nucleated Red Blood Cells % 0.1 %; Platelet Count (auto) 198 10^3/uL (140-450); Red Blood Cells 4.11 10^6/uL (4.5-5.90); Red Cell Distribution Width 17.7 % (11.8-14.3); White Blood Cell 7.6 10^3/uL (4.4-10.8)
[2019-08-27 06:20] LABS: Calcium 8.2 mg/dL (8.5-10.1); Potassium 4.5 mmol/L (3.5-5.1)
[2019-08-27] MEDS: BUDESONIDE (INHALATION) 0.5 MG/2 ML NEB NEB SCH ×2 (06:20→18:18)
[2019-08-27 06:28] LABS: Albumin 1.8 g/dL (3.4-5.0); BUN/Creatinine Ratio 23.5; Bilirubin, Total 0.9 mg/dL (0.2-1.0); Total Protein 5.9 g/dL (6.4-8.2)
[2019-08-27] MEDS: InsuLIN REG 1unit/0.01ml Soln (100units/ml) SC SCH ×4 (06:50→21:47)
[2019-08-27] MEDS: ACCU-CHEK COMFORT CURVE STRIP VI SCH ×4 (06:50→21:46)
[2019-08-27 09:04] VITALS: BP 83/50
[2019-08-27] MEDS: cefTRIAXone 1GM/50ML D5W 50 ML IV SCH (09:06)
[2019-08-27] MEDS: OSELTAMIVIR 30 MG CAP PO SCH ×2 (09:06→21:44)
[2019-08-27] MEDS: ENALAPRIL MALEATE 2.5 MG TAB PO SCH (09:06)
[2019-08-27] MEDS: CARVEDILOL 3.125 MG TAB PO SCH ×2 (09:07→21:48)
[2019-08-27 10:31] VITALS: BP 97/61
[2019-08-27] MEDS ORDERED: ALBUMIN 25% 100 ML IV PRN (12:30)
[2019-08-27] MEDS ORDERED: HEPARIN 1,000 UNITS/ml 1ML VIAL IV ONE (12:30)
[2019-08-27] MEDS ORDERED: ASPirin 81 mg TAB PO ONE (12:45)
[2019-08-27 13:00] VITALS: BP 108/57
[2019-08-27 17:10] VITALS: BP 103/52
[2019-08-27] MEDS: FAMOTIDINE 20 MG TAB PO SCH (21:46)
[2019-08-27] MEDS: ALBUTEROL SULF 2.5 MG/0.5ML(0.5%) NEB SOLN NEB PRN (22:06)
[2019-08-27 22:47] VITALS: BP 90/53
[2019-08-28] MEDS: ALBUTEROL SULF 2.5 MG/0.5ML(0.5%) NEB SOLN NEB SCH ×4 (00:40→18:20)
[2019-08-28] MEDS: IPRATROPIUM BROM 0.5 MG/2.5ML INH SOL NEB SCH ×4 (00:40→18:20)
[2019-08-28] MEDS: HYDROcodone-ACET 5/325MG TAB PO PRN ×2 (04:02→22:46)
[2019-08-28 05:33] VITALS: BP 105/60
[2019-08-28] MEDS: InsuLIN REG 1unit/0.01ml Soln (100units/ml) SC SCH ×4 (06:25→22:40)
[2019-08-28] MEDS: ACCU-CHEK COMFORT CURVE STRIP VI SCH ×4 (06:31→22:40)
[2019-08-28] MEDS: BUDESONIDE (INHALATION) 0.5 MG/2 ML NEB NEB SCH ×2 (06:52→18:20)
[2019-08-28 08:52] VITALS: BP 119/57
[2019-08-28] MEDS: ENALAPRIL MALEATE 2.5 MG TAB PO SCH (10:40)
[2019-08-28] MEDS: OSELTAMIVIR 30 MG CAP PO SCH (10:40)
[2019-08-28] MEDS: ASPirin 81 mg TAB PO SCH (10:40)
[2019-08-28] MEDS: CARVEDILOL 3.125 MG TAB PO SCH ×2 (10:41→22:00)
[2019-08-28 13:15] VITALS: BP 109/67
[2019-08-28 17:01] VITALS: BP 93/57
[2019-08-28 22:00] VITALS: BP 89/54
[2019-08-28] MEDS: FAMOTIDINE 20 MG TAB PO SCH (22:00)
[2019-08-28 22:43] VITALS: BP 102/56
[2019-08-29] MEDS: ALBUTEROL SULF 2.5 MG/0.5ML(0.5%) NEB SOLN NEB SCH ×4 (00:43→18:19)
[2019-08-29] MEDS: IPRATROPIUM BROM 0.5 MG/2.5ML INH SOL NEB SCH ×4 (00:43→18:19)
[2019-08-29 05:00] VITALS: BP 108/65
[2019-08-29] MEDS: InsuLIN REG 1unit/0.01ml Soln (100units/ml) SC SCH ×4 (06:52→22:00)
[2019-08-29] MEDS: ACCU-CHEK COMFORT CURVE STRIP VI SCH ×4 (06:53→22:13)
[2019-08-29] MEDS: BUDESONIDE (INHALATION) 0.5 MG/2 ML NEB NEB SCH ×2 (07:48→18:19)
[2019-08-29 09:00] VITALS: BP 104/61
[2019-08-29] MEDS: ENALAPRIL MALEATE 2.5 MG TAB PO SCH (10:02)
[2019-08-29] MEDS: CARVEDILOL 3.125 MG TAB PO SCH ×2 (10:03→21:26)
[2019-08-29] MEDS: ASPirin 81 mg TAB PO SCH (10:03)
[2019-08-29 13:00] VITALS: BP 91/61
[2019-08-29 15:38] VITALS: BP 91/61
[2019-08-29] MEDS: ALBUTEROL SULF 2.5 MG/0.5ML(0.5%) NEB SOLN NEB PRN (15:58)
[2019-08-29 16:50] VITALS: BP 90/50
[2019-08-29] MEDS: FAMOTIDINE 20 MG TAB PO SCH (21:27)
[2019-08-29 22:00] VITALS: BP 99/62
[2019-08-29] MEDS: TEMAZEPAM 15 MG CAP PO PRN (22:15)
[2019-08-30 00:10] VITALS: BP 98/65
[2019-08-30] MEDS: IPRATROPIUM BROM 0.5 MG/2.5ML INH SOL NEB SCH ×4 (00:29→19:52)
[2019-08-30] MEDS: ALBUTEROL SULF 2.5 MG/0.5ML(0.5%) NEB SOLN NEB SCH ×4 (00:29→19:52)
[2019-08-30 05:00] VITALS: BP 83/55
[2019-08-30] MEDS: BUDESONIDE (INHALATION) 0.5 MG/2 ML NEB NEB SCH ×2 (06:27→19:53)
[2019-08-30] MEDS: ACCU-CHEK COMFORT CURVE STRIP VI SCH ×4 (06:51→22:37)
[2019-08-30] MEDS: InsuLIN REG 1unit/0.01ml Soln (100units/ml) SC SCH ×4 (06:51→22:00)
[2019-08-30 09:00] VITALS: BP 94/55
[2019-08-30] MEDS: ASPirin 81 mg TAB PO SCH (09:53)
[2019-08-30] MEDS: ENALAPRIL MALEATE 2.5 MG TAB PO SCH (09:54)
[2019-08-30] MEDS: CARVEDILOL 3.125 MG TAB PO SCH ×2 (09:54→22:00)
[2019-08-30 10:24] LABS: INR 1.2 (0.9-1.15); Partial Thromboplastin Time 35.1 sec (23.64-32.05)
[2019-08-30] MEDS ORDERED: LIDOCAINE 2%HCL (LOCAL ANESTH.) INJ 20ML MDV ONE (14:10)
[2019-08-30] MEDS ORDERED: fentaNYL CITRATE 100 MCG/2 ML VL ONE (14:31)
[2019-08-30] MEDS ORDERED: MIDAZOLAM HCL 1MG/1ML-2 ML VIAL ONE (14:31)
[2019-08-30] MEDS ORDERED: HEPARIN SODIUM (PORCINE) 5000 UNITS/ML 1ML VIAL ONE (14:31)
[2019-08-30 17:00] VITALS: BP 86/58
[2019-08-30] MEDS: FAMOTIDINE 20 MG TAB PO SCH (22:00)
[2019-08-30] MEDS ORDERED: FUROSEMIDE 40 MG/4 ML VIAL IV ONE (23:30)
[2019-08-31] VITALS (76 sets, daily range): BP systolic 54–146; BP diastolic 29–89
[2019-08-31] MEDS: ALBUTEROL SULF 2.5 MG/0.5ML(0.5%) NEB SOLN NEB SCH ×5 (00:07→20:08)
[2019-08-31] MEDS: IPRATROPIUM BROM 0.5 MG/2.5ML INH SOL NEB SCH ×5 (00:07→20:08)
[2019-08-31] MEDS: InsuLIN REG 1unit/0.01ml Soln (100units/ml) SC SCH ×4 (06:00→22:00)
[2019-08-31] MEDS ORDERED: SODIUM CHLORIDE 0.9% 250 ML IV ONE ×2 (06:00→07:45)
[2019-08-31] MEDS: ACCU-CHEK COMFORT CURVE STRIP VI SCH ×4 (06:01→22:00)
[2019-08-31] MEDS: BUDESONIDE (INHALATION) 0.5 MG/2 ML NEB NEB SCH ×2 (06:05→20:08)
[2019-08-31] MEDS ORDERED: SODIUM CHL 0.9% 1000 ML BAG XX ONE (07:00)
[2019-08-31 09:41] LABS: Albumin 1.7 g/dL (3.4-5.0); Calcium 8.4 mg/dL (8.5-10.1)
[2019-08-31 09:45] LABS: BUN/Creatinine Ratio 31.1; Bilirubin, Total 1.4 mg/dL (0.2-1.0); Total Protein 6.1 g/dL (6.4-8.2)
[2019-08-31] MEDS: ASPirin 81 mg TAB PO SCH (10:00)
[2019-08-31] MEDS ORDERED: NOREPINEPHRINE 8 MG/250ML KIT 250 ML IV ONE (11:13)
[2019-08-31] MEDS ORDERED: ETOMIDATE (2MG/ML) 20ML VIAL IV ONE (11:22)
[2019-08-31] MEDS ORDERED: ROCURONIUM 10MG/ML 10ML VIAL IV ONE (11:22)
[2019-08-31] MEDS ORDERED: SUCCINYLCHOLINE CHLORIDE 20 MG/ML 10ML VIAL IV ONE (11:22)
[2019-08-31] MEDS ORDERED: PROPOFOL 200 ML IV ONE (11:42)
[2019-08-31] MEDS ORDERED: MIDAZOLAM DRIP 50 mg/50mL 50 ML IV ONE (11:57)
[2019-08-31] MEDS ORDERED: PHENYLEPHRINE IV 250 ML IV ONE (12:31)
[2019-08-31] MEDS: ENALAPRIL MALEATE 2.5 MG TAB PO SCH (12:58)
[2019-08-31] MEDS ORDERED: NOREPINEPHRINE 8 MG/250ML KIT 250 ML IV SCH (13:15)
[2019-08-31] MEDS ORDERED: PHENYLEPHRINE IV 250 ML IV SCH (13:15)
[2019-08-31] MEDS: PROPOFOL 100 ML IV SCH (13:22)
[2019-08-31] MEDS: MIDAZOLAM DRIP 50 mg/50mL 50 ML IV SCH ×2 (13:22→22:44)
[2019-08-31] MEDS: VASOPRESSIN 50 UNITS in D5W 5% 247.5 ML IV SCH (13:30)
[2019-08-31] MEDS ORDERED: SODIUM BICARBONATE 8.4 % INJ 50ML VIAL IV ONE ×2 (13:58→14:04)
[2019-08-31] MEDS ORDERED: DEXTROSE 50% SYRINGE 50 ML IV ONE (13:58)
[2019-08-31] MEDS ORDERED: InsuLIN REG 1unit/0.01ml Soln (100units/ml) ONE (13:59)
[2019-08-31] MEDS: EPINEPHrine HCL INJECTION 4 MG in SODIUM CHL 0.9% 250 ML IV SCH (14:30)
[2019-08-31] MEDS ORDERED: MIDAZOLAM HCL 1MG/1ML-2 ML VIAL ONE (14:35)
[2019-08-31 14:45] LABS: Albumin 1.4 g/dL (3.4-5.0); BUN/Creatinine Ratio 25.1; Calcium 8.7 mg/dL (8.5-10.1); Magnesium 2.7 mg/dL (1.6-2.6); Potassium 4.5 mmol/L (3.5-5.1)
[2019-08-31 14:48] LABS: Bilirubin, Total 1.4 mg/dL (0.2-1.0); Total Protein 5.1 g/dL (6.4-8.2)
[2019-08-31] MEDS: PHENYLEPHRINE INJ 40 MG in SODIUM CHL 0.9% 250 ML IV SCH ×2 (16:32→20:43)
[2019-08-31] MEDS: NOREPINEPHRINE BITARTRATE 16 MG in SODIUM CHL 0.9% 250 ML IV SCH (16:32)
[2019-08-31] MEDS ORDERED: HEPARIN 1,000 UNITS/ml 1ML VIAL IV ONE (16:45)
[2019-08-31] MEDS: CARVEDILOL 3.125 MG TAB PO SCH ×2 (17:43→22:00)
[2019-08-31] MEDS: FAMOTIDINE 20 MG TAB PO SCH (22:00)
[2019-09-01] VITALS (101 sets, daily range): BP systolic 53–128; BP diastolic 30–76
[2019-09-01] MEDS: VASOPRESSIN 50 UNITS in D5W 5% 247.5 ML IV SCH ×3 (00:27→22:30)
[2019-09-01] MEDS: PHENYLEPHRINE INJ 40 MG in SODIUM CHL 0.9% 250 ML IV SCH ×5 (00:27→20:00)
[2019-09-01] MEDS: NOREPINEPHRINE BITARTRATE 16 MG in SODIUM CHL 0.9% 250 ML IV SCH ×3 (00:27→20:00)
[2019-09-01] MEDS: ALBUTEROL SULF 2.5 MG/0.5ML(0.5%) NEB SOLN NEB SCH ×4 (00:36→18:37)
[2019-09-01] MEDS: IPRATROPIUM BROM 0.5 MG/2.5ML INH SOL NEB SCH ×4 (00:36→18:37)
[2019-09-01] MEDS ORDERED: PHENYLEPHRINE IV 250 ML IV ONE ×2 (03:44→03:46)
[2019-09-01] MEDS: MIDAZOLAM DRIP 50 mg/50mL 50 ML IV SCH ×4 (04:14→17:41)
[2019-09-01] MEDS: InsuLIN REG 1unit/0.01ml Soln (100units/ml) SC SCH ×4 (07:00→22:00)
[2019-09-01] MEDS: ACCU-CHEK COMFORT CURVE STRIP VI SCH ×4 (07:00→22:00)
[2019-09-01] MEDS: BUDESONIDE (INHALATION) 0.5 MG/2 ML NEB NEB SCH ×2 (07:30→18:37)
[2019-09-01 09:07] LABS: Basophils # (auto) 0 10 ^3/uL (0-0.2); Eosinophils # (auto) 0 10 ^3/uL (0-0.8); Lymphocytes # (auto) 0.6 10 ^3/uL (0.4-5.4); Monocytes # (auto) 1.2 10 ^3/uL (0-1.3)
[2019-09-01 09:08] LABS: Basophils % (auto) 0.3 % (0.0-2.0); Hematocrit 38.1 % (41.0-53.0); Hemoglobin 11.7 g/dL (13.5-17.5); Mean Corpuscular Hemoglobin 26.2 pg (28.0-32.0); Mean Corpuscular Hgb Conc. 30.8 g/dL (32.0-36.0); Mean Corpuscular Volume 85.1 fL (80.0-100.0); Neutrophils # (auto) 13.4 10 ^3/uL (1.6-8.6); Neutrophils % (auto) 87.7 % (37.0-80.0); Nucleated Red Blood Cells % 0.1 %; Platelet Count (auto) 322 10^3/uL (140-450); Red Blood Cells 4.48 10^6/uL (4.5-5.90); White Blood Cell 15.3 10^3/uL (4.4-10.8)
[2019-09-01 09:31] LABS: Albumin 1.6 g/dL (3.4-5.0); BUN/Creatinine Ratio 28.1; Calcium 8.1 mg/dL (8.5-10.1); Potassium 5.1 mmol/L (3.5-5.1)
[2019-09-01 09:33] LABS: Bilirubin, Total 1.4 mg/dL (0.2-1.0); Total Protein 6.3 g/dL (6.4-8.2)
[2019-09-01] MEDS: CARVEDILOL 3.125 MG TAB PO SCH ×2 (10:00→22:00)
[2019-09-01] MEDS: ASPirin 81 mg TAB PO SCH (10:00)
[2019-09-01] MEDS: ENALAPRIL MALEATE 2.5 MG TAB PO SCH (10:00)
[2019-09-01] MEDS ORDERED: SODIUM BICARBONATE 8.4% INJ 50ML SYRINGE IV ONE (10:46)
[2019-09-01] MEDS ORDERED: EPINEPHrine HCL 1 MG/10 ML SYRG IV ONE (10:46)
[2019-09-01] MEDS ORDERED: CALCIUM CHLOR(10%) 100MG/ML 10ML SYRINGE IV ONE (10:46)
[2019-09-01] MEDS ORDERED: AMIODARONE HCL 150 MG in D5W 5% 100 ML IV ONE (11:15)
[2019-09-01] MEDS ORDERED: AMIODARONE HCL (50 MG/ ML) 3 ML VIAL IV ONE (11:18)
[2019-09-01] MEDS ORDERED: AMIODARONE 450mg/250ml AE 250 ML IV ONE (11:21)
[2019-09-01] MEDS ORDERED: AMIODARONE 450mg/250ml AE 250 ML IV SCH ×2 (11:25→17:25)
[2019-09-01] MEDS: PROPOFOL 100 ML IV SCH ×2 (13:30→23:30)
[2019-09-01] MEDS: EPINEPHrine HCL INJECTION 4 MG in SODIUM CHL 0.9% 250 ML IV SCH (14:30)
[2019-09-01] MEDS ORDERED: Nepro With Carb Steady 1 Liter Bottle NG SCH (16:00)
[2019-09-01] MEDS: FAMOTIDINE 20 MG TAB PO SCH (22:00)
[2019-09-02] VITALS (42 sets, daily range): BP systolic 9–159; BP diastolic 6–65
[2019-09-02] MEDS: IPRATROPIUM BROM 0.5 MG/2.5ML INH SOL NEB SCH ×2 (00:20→07:28)
[2019-09-02] MEDS: ALBUTEROL SULF 2.5 MG/0.5ML(0.5%) NEB SOLN NEB SCH ×2 (00:21→07:28)
[2019-09-02] MEDS: MIDAZOLAM DRIP 50 mg/50mL 50 ML IV SCH (01:33)
[2019-09-02] MEDS: PHENYLEPHRINE INJ 40 MG in SODIUM CHL 0.9% 250 ML IV SCH (04:00)
[2019-09-02] MEDS: NOREPINEPHRINE BITARTRATE 16 MG in SODIUM CHL 0.9% 250 ML IV SCH (04:00)
[2019-09-02] MEDS: InsuLIN REG 1unit/0.01ml Soln (100units/ml) SC SCH (06:21)
[2019-09-02] MEDS: ACCU-CHEK COMFORT CURVE STRIP VI SCH (06:21)
[2019-09-02 06:26] LABS: Eosinophils # (auto) 0 10 ^3/uL (0-0.8); Hemoglobin 11.4 g/dL (13.5-17.5); Lymphocytes # (auto) 0.4 10 ^3/uL (0.4-5.4); Mean Corpuscular Hgb Conc. 31.1 g/dL (32.0-36.0)
[2019-09-02 06:28] LABS: Basophils # (auto) 0.1 10 ^3/uL (0-0.2); Basophils % (auto) 0.4 % (0.0-2.0); Eosinophils % (auto) 0.2 % (0.0-7.0); Hematocrit 36.5 % (41.0-53.0); Lymphocytes % (auto) 2.9 % (10.0-50.0); Mean Corpuscular Hemoglobin 26.7 pg (28.0-32.0); Mean Corpuscular Volume 85.7 fL (80.0-100.0); Monocytes # (auto) 1.2 10 ^3/uL (0-1.3); Monocytes % (auto) 8.5 % (0.0-12.0); Neutrophils # (auto) 12.5 10 ^3/uL (1.6-8.6); Platelet Count (auto) 321 10^3/uL (140-450); Red Blood Cells 4.26 10^6/uL (4.5-5.90); White Blood Cell 14.2 10^3/uL (4.4-10.8)
[2019-09-02 06:48] LABS: Calcium 7.9 mg/dL (8.5-10.1)
[2019-09-02] MEDS ORDERED: SODIUM CHL 0.9% 1000 ML BAG XX ONE (07:00)
[2019-09-02 07:05] LABS: BUN/Creatinine Ratio 28.5
[2019-09-02 07:09] LABS: Potassium 5.6 mmol/L (3.5-5.1)
[2019-09-02] MEDS: BUDESONIDE (INHALATION) 0.5 MG/2 ML NEB NEB SCH (07:28)
[2019-09-02] MEDS ORDERED: SODIUM BICARBONATE 8.4 % INJ 50ML VIAL IV ONE (09:00)
[2019-09-02] MEDS ORDERED: EPINEPHrine HCL 1 MG/10 ML SYRG IV ONE (12:17)
[2019-09-02] MEDS ORDERED: ATROPINE SULF 1 MG/10ml SYR IV ONE (12:17)
[2019-09-02] MEDS ORDERED: SODIUM BICARBONATE 8.4% INJ 50ML SYRINGE IV ONE (12:17)
== END 2019-09-02 15:21 | disposition expired | DRG 208 ==
LOC: EDBD 16:04 → ER 16:04 → TELE 16:05 → ICU WEST 23:39 → DOU IN ICU 08-13 17:23 → TELE-CENTR 08-16 19:49 → DOU IN ICU 08-31 00:20 → ICU WEST 09-01 06:19
PROVIDERS: ADMIT Nurse Practitioner Acute Care; ATTEND Internal Medicine
PROC: 0W9930Z Drainage of Right Pleural Cavity with Drainage Device, Percutaneous Approach (ICD-10-PCS; 2019-08-12)
PROC: 02HV33Z Insertion of Infusion Device into Superior Vena Cava, Percutaneous Approach (ICD-10-PCS; 2019-08-12)
PROC: 5A1D70Z Performance of Urinary Filtration, Intermittent, Less than 6 Hours Per Day (ICD-10-PCS; 2019-08-13)
PROC: 5A1D70Z Performance of Urinary Filtration, Intermittent, Less than 6 Hours Per Day (ICD-10-PCS; 2019-08-16)
PROC: 5A1D70Z Performance of Urinary Filtration, Intermittent, Less than 6 Hours Per Day (ICD-10-PCS; 2019-08-19)
PROC: 0W9930Z Drainage of Right Pleural Cavity with Drainage Device, Percutaneous Approach (ICD-10-PCS; 2019-08-23)
PROC: 5A1D70Z Performance of Urinary Filtration, Intermittent, Less than 6 Hours Per Day (ICD-10-PCS; 2019-08-24)
PROC: 5A1D70Z Performance of Urinary Filtration, Intermittent, Less than 6 Hours Per Day (ICD-10-PCS; 2019-08-27)
PROC: 0JH63XZ Insertion of Tunneled Vascular Access Device into Chest Subcutaneous Tissue and Fascia, Percutaneous Approach (ICD-10-PCS; 2019-08-30)
PROC: 02H633Z Insertion of Infusion Device into Right Atrium, Percutaneous Approach (ICD-10-PCS; 2019-08-30)
PROC: B5181ZA Fluoroscopy of Superior Vena Cava using Low Osmolar Contrast, Guidance (ICD-10-PCS; 2019-08-30)
PROC: 5A12012 Performance of Cardiac Output, Single, Manual (ICD-10-PCS; 2019-08-31)
PROC: 5A1945Z Respiratory Ventilation, 24-96 Consecutive Hours (ICD-10-PCS; 2019-08-31)
PROC: 0BH17EZ Insertion of Endotracheal Airway into Trachea, Via Natural or Artificial Opening (ICD-10-PCS; 2019-08-31)
PROC: 03HY32Z Insertion of Monitoring Device into Upper Artery, Percutaneous Approach (ICD-10-PCS; principal; 2019-09-01)
PROC: 4A133B1 Monitoring of Arterial Pressure, Peripheral, Percutaneous Approach (ICD-10-PCS; 2019-09-01)
PROC: 4A133J1 Monitoring of Arterial Pulse, Peripheral, Percutaneous Approach (ICD-10-PCS; 2019-09-01)
PROC: 5A1D70Z Performance of Urinary Filtration, Intermittent, Less than 6 Hours Per Day (ICD-10-PCS; 2019-09-02)
DX: J96.21 Acute and chronic respiratory failure with hypoxia (principal); E43 Unspecified severe protein-calorie malnutrition; I50.23 Acute on chronic systolic (congestive) heart failure; N18.6 End stage renal disease; I13.2 Hypertensive heart and chronic kidney disease with heart failure and with stage 5 chronic kidney disease, or end stage renal disease; L03.115 Cellulitis of right lower limb; L03.116 Cellulitis of left lower limb; R57.9 Shock, unspecified; J94.2 Hemothorax; Z68.1 Body mass index [BMI] 19.9 or less, adult; J91.8 Pleural effusion in other conditions classified elsewhere; I42.9 Cardiomyopathy, unspecified; J43.9 Emphysema, unspecified; R57.1 Hypovolemic shock; Z99.2 Dependence on renal dialysis; F32.9 Major depressive disorder, single episode, unspecified; Z03.818 Encounter for observation for suspected exposure to other biological agents ruled out; J10.1 Influenza due to other identified influenza virus with other respiratory manifestations; D63.1 Anemia in chronic kidney disease; I27.21 Secondary pulmonary arterial hypertension; E11.22 Type 2 diabetes mellitus with diabetic chronic kidney disease; F17.210 Nicotine dependence, cigarettes, uncomplicated; F41.9 Anxiety disorder, unspecified; I25.10 Atherosclerotic heart disease of native coronary artery without angina pectoris; Z79.4 Long term (current) use of insulin; Z79.899 Other long term (current) drug therapy; Z80.43 Family history of malignant neoplasm of testis; Z82.49 Family history of ischemic heart disease and other diseases of the circulatory system; Z83.3 Family history of diabetes mellitus; Z95.810 Presence of automatic (implantable) cardiac defibrillator; Z91.19 Patient's noncompliance with other medical treatment and regimen
CPT/HCPCS: 10022; 31500; 36415; 36561; 36600; 71045; 71250; 73060; 73070; 76000; 76942; 77001; 77012; 80048; 80053; 80061; 82140; 82728; 82805; 82962; 83605; 83615; 83735; 83880; 83986; 84100; 84443; 84484; 85025; 85379; 85610; 85730; 86141; 86850; 86900; 86901; 87040; 87070; 87077; 87081; 87186; 87205; 87804; 87880; 89051; 90935; 92950; 93005; 93306; 93971; 94002; 94003; 94640; 94660; 96361; 96365; 96375; 99152; 99153; A4223; C1729; C1751; G0378; G9035; J0171; J0330; J0696; J1642; J1815; J2250; J2405; J2704; J7060; P9047